=== PATIENT | female | born 1940 | race African-American/Black ===

== ENCOUNTER → 2016-09-01 | Outpatient (CLI) | payer OTHER, MEDICAID ==
[2016-07-16 17:49] VITALS: BP 192/91
[~2016-09-01] MED LIST: AMLO5TAB2 PO; APIX5TAB PO; DIPH25CA58 PO; HYDR-2678 PO; IOHEXOL 240 MG/ML 50ML VIAL. PO ONE; IOHEXOL 300 MG/ML 75 ML VIAL IV ONE; LOSA1TAB16 PO; LOSA1TAB18 PO; OMEP20TA PO; PRED20TA PO
--- NOTE | 2016-09-01 08:51 | RAD ---
INDICATION: Follow-up of known thrombus COMPARISON: 06/16/2016 TECHNIQUE: Grayscale, color and doppler ultrasound images were obtained of the left lower extremity venous vasculature. LEFT: Nonocclusive thrombus is seen within the left common femoral and popliteal veins. Superficial femoral vein is now patent. IMPRESSION: 1. Nonocclusive thrombus is identified in left common femoral and distal popliteal vein.
--- NOTE | 2016-09-01 12:57 | RAD ---
INDICATION: Restage rectal cancer COMPARISON: 09/28/2015 and 09/10/2015 TECHNIQUE: Axial CT images were obtained through the chest, abdomen and pelvis with intravenous contrast. Coronal reformations were processed. FINDINGS: Chest: No evidence of pneumothorax. Linear nodular density near right lung base measuring up to approximately 2.4 cm. No definite growth of the previously identified tiny nodules within the lungs seen on prior exam. Mild to moderate calcific atherosclerosis without thoracic aortic aneurysm. Degenerative changes of spine. Abdomen: Liver is low attenuation. Mild calcific atherosclerosis without abdominal aortic aneurysm. No peripancreatic edema. Possible subcentimeter low-attenuation lesion within the liver. Spleen unremarkable. Subcentimeter low-attenuation left renal lesion, too small to characterize. Probable cyst right kidney measuring approximately 5 cm. No major change in left adrenal nodule. Nodular density right adrenal gland is again seen, could be an adenoma. Bladder is partially distended. Postoperative changes to the sigmoid region. Appendix does not appear grossly inflamed. No dilated loops of bowel suggest obstruction. There is a small amount of presacral edema. Small fat-containing umbilical hernia. Degenerative changes spine. Small ventral abdominal wall hernia within upper abdomen. IMPRESSION: 1. Interval postoperative changes to the sigmoid region with staple line seen. 2. There is some presacral edema identified. Could be related to the patient's surgery or posttreatment changes. 3. There is a possible subcentimeter low-attenuation lesion within the liver. This can be monitored on future examinations to ensure no growth. 4. Linear nodular density seen at right lung base. Could be secondary to round atelectasis but given the patient's history would consider obtaining a follow-up examination in a few months to ensure no growth to exclude neoplastic causes. 5. Right greater than left adrenal nodule again seen. Could be from adenomas but can be followed on future exams. PQRS Compliance Statement: One or more of the following individualized dose reduction techniques were utilized for this examination: 1. Automated exposure control 2. Adjustment of the mA and/or kV according to patient size 3. Use of iterative reconstruction technique
== END | disposition home or self-care (01) ==
LOC: CT 07:53
PROVIDERS: ATTEND Internal Medicine Hematology & Oncology
DX: C20 Malignant neoplasm of rectum (principal); Z86.718 Personal history of other venous thrombosis and embolism
CPT/HCPCS: 71260; 74177; 93971; Q9966; Q9967

== ENCOUNTER 2016-11-25 05:20 | Emergency (ER) | payer OTHER, MEDICAID ==
[~2016-11-25] VITALS: Ht 157.5 cm; Wt 74.8 kg
[~2016-11-25 05:20] MED LIST changes: -CONTRAST GIVEN MC PRN; -IOHEXOL 240 MG/ML 50ML VIAL. PO ONE; -IOHEXOL 300 MG/ML 75 ML VIAL IV ONE; -PRED50TA PO
[2016-11-25 05:31] VITALS: BP 151/102
--- NOTE | 2016-11-25 05:49 | PHYS DOC ---
Past Medical History Past Medical History: Cancer, Hypertension, Other Additional Past Medical Histor: RECTAL CANCER, CHEMO Past Surgical History: Other Additional Past Surgical Histo: illeostomy, hernia, COLOSTOMY REVERSAL Alcohol Use: None Drug Use: None Adult General Chief Complaint Chief Complaint: FACE PROBLEM HPI HPI Patient is a 76 year old female who has a history significant for colorectal cancer and hypertension who presents to the ER today complaining of swelling to her right lower lip and right cheeks and started approximately 9:30 PM. Patient reports that she has a history of hypertension and that she used to be on amlodipine and lisinopril approximately 1-2 years ago an episode of angioedema that was similar to what she is having now and she was told to stop her lisinopril. Patient reports she has been taking her amlodipine for several years now without any problems. Patient denies any new medications To her new allergens that are identified here in the ED. Patient reports that she was on a liquids for a blood clot in her left lower extremities however she is no longer on that. Patient denies any recent fevers shakes chills nausea vomiting diarrhea chest pain or shortness of breath. Patient denies any difficulty swallowing or difficulty breathing. Patient denies any wheezing. Patient denies any other rash on her body. Her abdominal discomfort or diarrhea. Patient's physical exam is significant for angioedema that is most notable to her right lower lip and right cheeks. His oropharynx is clear. Patient's uvula was midline without any evidence of angioedema. Patient's tongue did not exhibit any significant angioedema. Patient's airway appears to be stable. There is no evidence of airway compromise at this time. There is no stridor. Patient's lung exam was clear. There is no wheezing rales or rhonchi. Patient's skin exam was unremarkable. There was no evidence of other rashes. A/P #1 angioedema etiology unclear however most likely culprit is her calcium channel logan, amlodipine. Patient does have an appointment to see her primary care physician, Dr. Salcedo coming up. We will need to stop her amlodipine. She will need to see her primary care doctor determine her next course of action regarding initiating a new antihypertensive medication. While in the ER we'll observe her. We will give her Benadryl and prednisone which she reports she got in the past and is have helped her last time she had angioedema. Patient will need to be discharged on Benadryl and prednisone and was discussed earlier she'll be instructed to stop her amlodipine as this is the only further culprit that could be causing her angioedema at this time. Review of Systems Review of Systems Constitutional: Denies fever or chills [] Eyes: Denies change in visual acuity, redness, or eye pain [] HENT: Denies nasal congestion or sore throat [] Respiratory: Denies cough or shortness of breath [] Cardiovascular: No additional information not addressed in HPI [] GI: Denies abdominal pain, nausea, : Denies dysuria or hematuria [] Musculoskeletal: Denies back pain or joint pain [] Integument: See above. Neurologic: Denies headache, focal weakness or sensory changes [] Current Medications Current Medications Current Medications Medications (Trade) Dose Ordered Sig/Abdiaziz Start Time Stop Time Status Last Admin Dose Admin Diphenhydramine HCl (Benadryl) 25 mg 1X ONCE 11/25/16 06:00 11/25/16 06:01 DC 11/25/16 06:05 25 MG Methylprednisolone Sodium Succinate (Solu-Medrol 125mg Vial) 125 mg 1X ONCE 11/25/16 06:00 11/25/16 06:01 DC 11/25/16 06:05 125 MG Allergies Allergies Allergies Coded Allergies Type Severity Reaction Last Updated Verified losartan Allergy Severe Hives 04/07/16 Yes Penicillins Allergy Intermediate 04/07/16 Yes lisinopril Allergy Unknown 11/25/16 Yes Physical Exam Physical Exam Constitutional: Well developed, well nourished, no acute distress, non-toxic appearance. [] HENT: Normocephalic, atraumatic, bilateral external ears normal, oropharynx moist, no oral exudates, nose normal. Please see above for evaluation of her angioedema. [] Eyes: PERRLA, EOMI, conjunctiva normal, Neck: Normal range of motion, no tenderness, supple, no stridor. [] Cardiovascular:Heart rate regular rhythm, Lungs & Thorax: Bilateral breath sounds clear to auscultation [] Abdomen: Bowel sounds normal, soft, no tenderness, no masses, no pulsatile masses. [] Skin: Warm, dry, no erythema, no rash. [] Back: No tenderness, no CVA tenderness. [] Extremities: No tenderness, no cyanosis, no clubbing, ROM intact, no edema. [] Neurologic: Alert and oriented X 3, normal motor function, normal sensory function, no focal deficits noted. [] Psychologic: Affect normal, judgement normal, mood normal. [] Current Patient Data Vital Signs Vital Signs Date Time Temp Pulse Resp B/P (MAP) Pulse Ox O2 Delivery O2 Flow Rate FiO2 11/25/16 05:31 97.4 79 16 99 Room Air 97.4 EKG EKG [] Radiology/Procedures Radiology/Procedures [] Course & Med Decision Making Course & Med Decision Making Pertinent Labs and Imaging studies reviewed. (See chart for details) [On arrival at 6 AM evaluated patient noted to have angioedema of the lower lip. She noted last at about 9 PM after using a lisinopril localized swelling just to the lower lip without change in voice neck stiffness or pain. Patient is an idiopathic reaction like this in the past has been one not take lisinopril. She took some Benadryl but she still having some localized swelling to the lip as well. Over the course of her evaluation here in the emergent over the last hour and a half her lip has significantly gone down inside given the methylprednisolone IV and Benadryl. Patient understands need not take lisinopril will follow-up with her primary care doctor. Impression angioedema Disposition and treatment: Patient we discharged her primary care doctor given a course of Benadryl and prednisone orally for the next 5 days with precautions given] Jeovany Disclaimer Dragon Disclaimer This electronic medical record was generated, in whole or in part, using a voice recognition dictation system. Departure Departure Impression: Primary Impression: Angioedema Disposition: 01 HOME, SELF-CARE Condition: IMPROVED Referrals: MAYNOR SALCEDO (PCP) Patient Instructions: Angioedema Scripts Prednisone (PREDNISONE) 50 Mg Tablet 50 MG PO DAILY for 5 Days, #5 TAB Prov: HEATH HARRISON MD 11/25/16 Diphenhydramine Hcl (BENADRYL) 25 Mg Capsule 50 MG PO QID for 5 Days, #40 CAP Prov: HEATH HARRISON MD 11/25/16 Problem Qualifiers Primary Impression: Angioedema Encounter type: initial encounter Qualified Codes: T78.3XXA - Angioneurotic edema, initial encounter TANG MAI MD November 25, 2016 05:49 HEATH HARRISON MD November 25, 2016 06:45
[2016-11-25] MEDS ORDERED: methylPREDNISolone SOD SUCC PF 125 MG/2 ML VIAL. IV ONE (06:00)
[2016-11-25] MEDS ORDERED: diphenhydrAMINE 50 MG/ML VIAL IVP ONE (06:00)
[2016-11-25] MEDS ORDERED: PRED50TA PO (06:45)
[2016-11-25] MEDS ORDERED: DIPH25CA58 PO (06:45)
== END 2016-11-25 06:50 | disposition home or self-care (01) ==
LOC: ER 05:20
DX: T78.3XXA Angioneurotic edema, initial encounter (principal); I10 Essential (primary) hypertension; Z88.0 Allergy status to penicillin; T88.7XXA Unspecified adverse effect of drug or medicament, initial encounter; T46.4X5A Adverse effect of angiotensin-converting-enzyme inhibitors, initial encounter
CPT/HCPCS: 96374; 96375; 99284; J1200; J2930

== ENCOUNTER → 2016-11-25 | Outpatient (CLI) | payer OTHER, MEDICAID ==
[~2016-11-25] MED LIST changes: +CONTRAST GIVEN MC PRN; +PRED50TA PO
[2016-11-25 05:31] VITALS: BP 151/102
--- NOTE | 2016-11-25 10:25 | RAD ---
Indication: Rectal carcinoma, restaging. Axial imaging through the chest, abdomen and pelvis was performed after the administration of intravenous contrast. Correlation is made with prior CT from 09/01/2016. CT chest: No axillary, hilar or mediastinal lymphadenopathy is detected. No pericardial or pleural fluid is identified. Previously noted nodular ill-defined peripheral density in the posterior right lower lobe is stable and consistent with probable scarring or atelectasis. The remainder of the lung perez are clear. Impression: Stable CT of the chest when compared with exam from 09/01/2016. No thoracic lymphadenopathy or evidence of pulmonary metastatic disease is identified. CT abdomen and pelvis: A tiny low density in the right lobe the liver near the dome appears stable and barely visible. No new liver mass is detected. The gallbladder is unremarkable. The pancreas and spleen are unremarkable. Previously noted bilateral adrenal nodularity is stable. The 5 cm cyst upper pole right kidney appears stable. The aorta is nonaneurysmal. No central retroperitoneal or mesenteric lymphadenopathy is detected. The small and large bowel loops are normal caliber. Postsurgical changes near the rectosigmoid junction are noted. Mild edema in the presacral space is again noted and again likely posttherapeutic. No pelvic lymphadenopathy is seen. Impression: Stable CT of the abdomen and pelvis when compared with exam from 09/01/2016. No abdominal or pelvic lymphadenopathy or evidence of metastatic disease is identified. PQRS Compliance Statement: One or more of the following individualized dose reduction techniques were utilized for this examination: 1. Automated exposure control 2. Adjustment of the mA and/or kV according to patient size 3. Use of iterative reconstruction technique
== END | disposition home or self-care (01) ==
LOC: CT 07:50
PROVIDERS: ATTEND Internal Medicine Hematology & Oncology
DX: C20 Malignant neoplasm of rectum (principal)
CPT/HCPCS: 71260; 74177; Q9966; Q9967

== ENCOUNTER 2016-12-13 00:22 | Emergency (ER) | payer OTHER, MEDICAID ==
[~2016-12-13] VITALS: Ht 157.5 cm; Wt 74.8 kg
[~2016-12-13 00:22] MED LIST changes: +PRED50TA PO
--- NOTE | 2016-12-13 00:32 | PHYS DOC ---
Past Medical History Past Medical History: Cancer, Hypertension, Other Additional Past Medical Histor: RECTAL CANCER, CHEMO Past Surgical History: Other Additional Past Surgical Histo: illeostomy, hernia, COLOSTOMY REVERSAL Alcohol Use: None Drug Use: None Adult General Chief Complaint Chief Complaint: ALLERGIC REACTION [facility] HPI Patient is a 76 year old female who presents with upper lip swelling around the left side onset couple hours prior to arrival slight itching denies rash denies tongue swelling denies shortness of breath or difficulty swallowing secretions. Prior ER visit for same problem 2 weeks ago--treated with steroids and Benadryl. She was recently changed to amlodipine and is discontinued ROC inhibitor's and ARB's due to concerns for angioedema in the past. Review of Systems Review of Systems Constitutional: Denies fever or chills [] Eyes: Denies change in visual acuity, redness, or eye pain [] HENT: Denies nasal congestion or sore throat [] Respiratory: Denies cough or shortness of breath [] Cardiovascular: No additional information not addressed in HPI [] GI: Denies abdominal pain, nausea, vomiting, bloody stools or diarrhea [] : Denies dysuria or hematuria [] Musculoskeletal: Denies back pain or joint pain [] Integument: Denies rash or skin lesions [] Neurologic: Denies headache, focal weakness or sensory changes [] Endocrine: Denies polyuria or polydipsia [] Current Medications Current Medications Current Medications Medications (Trade) Dose Ordered Sig/Abdiaziz Start Time Stop Time Status Last Admin Dose Admin Diphenhydramine HCl (Benadryl) 25 mg 1X ONCE 12/13/16 01:00 12/13/16 01:01 DC 12/13/16 00:50 25 MG Methylprednisolone Sodium Succinate (SOLU-Medrol 125MG VIAL) 125 mg 1X ONCE 12/13/16 01:00 12/13/16 01:01 DC 12/13/16 00:50 125 MG Sodium Chloride 500 ml @ 500 mls/hr 1X ONCE 12/13/16 01:00 12/13/16 01:59 DC 12/13/16 00:49 500 MLS/HR Allergies Allergies Allergies Coded Allergies Type Severity Reaction Last Updated Verified losartan Allergy Severe Hives 04/07/16 Yes Penicillins Allergy Intermediate 04/07/16 Yes lisinopril Allergy Unknown 11/25/16 Yes Physical Exam Physical Exam Constitutional: Well developed, well nourished, no acute distress, non-toxic appearance. [] HENT: Normocephalic, atraumatic, bilateral external ears normal, oropharynx moist, no oral exudates, nose normal. Mild swelling to the left upper lip [] Eyes: PERRLA, EOMI, conjunctiva normal, no discharge. [] Neck: Normal range of motion, no tenderness, supple, no stridor. [] Cardiovascular:Heart rate regular rhythm, no murmur [] Lungs & Thorax: Bilateral breath sounds clear to auscultation [] Abdomen: Bowel sounds normal, soft, no tenderness, no masses, no pulsatile masses. [] Skin: Warm, dry, no erythema, no rash. [] Back: No tenderness, no CVA tenderness. [] Extremities: No tenderness, no cyanosis, no clubbing, ROM intact, no edema. [] Neurologic: Alert and oriented X 3, normal motor function, normal sensory function, no focal deficits noted. [] Psychologic: Affect normal, judgement normal, mood normal. [] Current Patient Data Vital Signs Vital Signs Date Time Temp Pulse Resp B/P (MAP) Pulse Ox O2 Delivery O2 Flow Rate FiO2 12/13/16 01:30 65 153/85 (107) 97 Room Air 12/13/16 00:25 97.3 20 97.3 EKG EKG [] Radiology/Procedures Radiology/Procedures [] Course & Med Decision Making Course & Med Decision Making Pertinent Labs and Imaging studies reviewed. (See chart for details) The patient is stable and in no distress will give her some IV steroids and Benadryl and IV fluids and observe for progression or improvement of symptoms. Time 0 1:30 AM patient is improved and wants to go home [] Dragon Disclaimer Dragon Disclaimer This electronic medical record was generated, in whole or in part, using a voice recognition dictation system. Departure Departure Impression: Primary Impression: Angioedema Disposition: HOME, SELF-CARE Condition: IMPROVED Referrals: MAYNOR SALCEDO (PCP) AMEYA MORLEY MD December 13, 2016 00:32
[2016-12-13] MEDS ORDERED: diphenhydrAMINE 50 MG/ML VIAL IVP ONE (01:00)
[2016-12-13] MEDS ORDERED: IV NORMAL SALINE 500ML BAG 500 ML IV ONE (01:00)
[2016-12-13] MEDS ORDERED: methylPREDNISolone SOD SUCC PF 125 MG/2 ML VIAL. IV ONE (01:00)
[2016-12-13 01:30] VITALS: BP 153/85
== END 2016-12-13 01:55 | disposition home or self-care (01) ==
LOC: ER 00:22
DX: T78.3XXA Angioneurotic edema, initial encounter (principal); I10 Essential (primary) hypertension; Z88.0 Allergy status to penicillin; Z88.8 Allergy status to other drugs, medicaments and biological substances
CPT/HCPCS: 96361; 96374; 96375; 99284; J1200; J2930; J7040

== ENCOUNTER → 2017-03-19 | Outpatient (CLI) | payer MEDICAID, OTHER ==
[~2017-03-19] MED LIST changes: -OMEP20TA PO; +OMEP20TA8 PO
--- NOTE | 2017-03-19 15:10 | RAD ---
Exam performed: Left lower extremity venous Doppler. Clinical Indication: Left leg pain, history of DVT Date of Service:03/19/17 Comparison : Left lower extremity venous Doppler from 09/01/16 and bilateral lower extremity venous Doppler from 06/16/16 Discussion: Multiple longitudinal and transverse high resolution real-time images of the venous system of left lower extremity were obtained with color and Doppler sampling and spectral analysis. The common femoral, superficial femoral, popliteal and proximal calf veins are all patent and demonstrate normal flow and compressibility. Normal respiratory phasicity and augmentation is present. Impression: Normal color duplex ultrasound of the venous system of left lower extremity.
== END | disposition home or self-care (01) ==
LOC: US 13:58
PROVIDERS: ATTEND Internal Medicine Hematology & Oncology
DX: M79.605 Pain in left leg (principal); Z85.048 Personal history of other malignant neoplasm of rectum, rectosigmoid junction, and anus; Z86.718 Personal history of other venous thrombosis and embolism
CPT/HCPCS: 93971

== ENCOUNTER → 2017-11-25 | Outpatient (CLI) | payer OTHER ==
[~2017-11-25] MED LIST changes: -AMLO5TAB2 PO; -APIX5TAB PO; +CONTRAST GIVEN MC; -DIPH25CA58 PO; -HYDR-2678 PO; -LOSA1TAB16 PO; -LOSA1TAB18 PO; -OMEP20TA8 PO; -PRED20TA PO; -PRED50TA PO
[2017-11-25] MEDS: IOHEXOL 240 MG/ML 50ML VIAL. PO (08:15)
[2017-11-25] MEDS: IOHEXOL 300 MG/ML 100ML VIAL. IV (09:05)
== END | disposition home or self-care (01) ==
LOC: CT 07:31
DX: C20 Malignant neoplasm of rectum (principal)
CPT/HCPCS: 71260; 74177; Q9966; Q9967

== ENCOUNTER → 2017-12-09 | Outpatient (CLI) | payer OTHER | END | disposition home or self-care (01) | LOC: MAMMO 09:27 | DX: N63.21 Unspecified lump in the left breast, upper outer quadrant (principal); I10 Essential (primary) hypertension; E78.5 Hyperlipidemia, unspecified; Z85.048 Personal history of other malignant neoplasm of rectum, rectosigmoid junction, and anus | CPT/HCPCS: 76641; 77066; G0279 ==

== ENCOUNTER → 2017-12-15 | Outpatient (CLI) | payer OTHER ==
[~2017-12-15] MED LIST changes: -CONTRAST GIVEN MC; +LIDOCAINE 1% Multi-Dose 50 ML VIAL. INJ
== END | disposition home or self-care (01) ==
LOC: US 09:58
DX: C50.912 Malignant neoplasm of unspecified site of left female breast (principal); D24.1 Benign neoplasm of right breast; Z88.0 Allergy status to penicillin; Z88.8 Allergy status to other drugs, medicaments and biological substances; Z98.42 Cataract extraction status, left eye; Z98.41 Cataract extraction status, right eye; Z96.1 Presence of intraocular lens; I10 Essential (primary) hypertension; Z85.038 Personal history of other malignant neoplasm of large intestine; E66.9 Obesity, unspecified; Z90.710 Acquired absence of both cervix and uterus; Z90.721 Acquired absence of ovaries, unilateral; Z90.79 Acquired absence of other genital organ(s); F41.9 Anxiety disorder, unspecified
CPT/HCPCS: 19081; 19083; 76942; 77066; 88305; 88361; C1713

== ENCOUNTER 2018-01-04 07:25 | Observation (INO) | payer OTHER ==
[~2018-01-04 07:25] MED LIST changes: +IV RINGERS,LACTATED 1000ML 1,000 ML IV; -LIDOCAINE 1% Multi-Dose 50 ML VIAL. INJ; +LIDOCAINE 1% PF 2 ML VIAL. ID; +ONDANSETRON PF 4 MG/2 ML VIAL. IV; +PROCHLORPERAZINE 10 MG/2 ML VIAL. IV; +fentaNYL PF VIAL 100 MCG/2 ML VIAL IV
[2018-01-04] MEDS: LIDOCAINE WITH 8.4% SOD BICARB 3 ML DISP.SYRIN. INJ ×2 (07:30)
[2018-01-04] MEDS ORDERED: ISOSULFAN BLUE 50 MG/5 ML VIAL. SQ (08:10)
[2018-01-04] MEDS ORDERED: METHYLENE BLUE 1% 10 ML VIAL. (08:10)
[2018-01-04] MEDS ORDERED: DEXAMETHASONE SOD PHOS 20 MG/5 ML VIAL. (08:41)
[2018-01-04] MEDS ORDERED: LIDOCAINE 2% PF Vial for OR 5 ML VIAL. (08:41)
[2018-01-04] MEDS ORDERED: fentaNYL PF VIAL 100 MCG/2 ML VIAL ×3 (08:41→13:16)
[2018-01-04] MEDS ORDERED: ONDANSETRON PF 4 MG/2 ML VIAL. (08:41)
[2018-01-04] MEDS ORDERED: PROPOFOL 20 ML IV (08:41)
[2018-01-04] MEDS: ISOSULFAN BLUE 50 MG/5 ML VIAL. SQ (09:49)
[2018-01-04] MEDS ORDERED: ePHEDrine PF IN SALINE 50 MG/5 ML DISP.SYRIN IV (11:02)
[2018-01-04] MEDS ORDERED: SEVOFLURANE > 120 MINUTES. IH (11:03)
[2018-01-04] MEDS: IV 1/2 NORMAL SALINE 1,000 ML IV ×3 (12:05→20:28)
[2018-01-04] MEDS ORDERED: fentaNYL PF VIAL 100 MCG/2 ML VIAL IV (12:15)
[2018-01-04] MEDS ORDERED: 0.9 % SODIUM CHLORIDE 10 ML DISP.SYRIN. IV (12:15)
[2018-01-04] MEDS ORDERED: ONDANSETRON PF 4 MG/2 ML VIAL. IV (12:15)
[2018-01-04] MEDS ORDERED: HYDROcodone/APAP 5/325MG 1 TAB TABLET PO (12:15)
[2018-01-04] MEDS: fentaNYL PF VIAL 100 MCG/2 ML VIAL IV ×4 (12:21→13:31)
[2018-01-04] MEDS ORDERED: MORPHINE SULFATE 2 MG/ML DISP.SYRIN. (12:50)
[2018-01-04] MEDS: MORPHINE SULFATE 2 MG/ML DISP.SYRIN. IV ×2 (12:57→13:07)
[2018-01-04] MEDS: HYDROcodone/APAP 5/325MG 1 TAB TABLET PO (17:26)
[2018-01-05] MEDS: HYDROcodone/APAP 5/325MG 1 TAB TABLET PO (03:27)
== END 2018-01-05 13:15 | disposition other institution (70) ==
LOC: SURG 07:25 → 4 NORTH 12:05
DX: C50.912 Malignant neoplasm of unspecified site of left female breast (principal); Z85.3 Personal history of malignant neoplasm of breast; Z90.12 Acquired absence of left breast and nipple
CPT/HCPCS: 19303; 38792; 96374; A7015; A9541; G0378; G0379; J1100; J1956; J2001; J2270; J2405; J2704; J3010; J7120; Q9968

== ENCOUNTER → 2018-01-27 | Outpatient (CLI) | payer OTHER ==
[~2018-01-27] MED LIST changes: -IV RINGERS,LACTATED 1000ML 1,000 ML IV; -LIDOCAINE 1% PF 2 ML VIAL. ID; +LIDOCAINE 1% PF 30 ML VIAL.; -ONDANSETRON PF 4 MG/2 ML VIAL. IV; -PROCHLORPERAZINE 10 MG/2 ML VIAL. IV; -fentaNYL PF VIAL 100 MCG/2 ML VIAL IV
== END | disposition home or self-care (01) ==
LOC: ECHO 07:17
DX: I35.1 Nonrheumatic aortic (valve) insufficiency (principal); C20 Malignant neoplasm of rectum; C50.212 Malignant neoplasm of upper-inner quadrant of left female breast; I10 Essential (primary) hypertension; E78.5 Hyperlipidemia, unspecified; Z17.0 Estrogen receptor positive status [ER+]
CPT/HCPCS: 93306

== ENCOUNTER → 2018-01-27 | Day surgery (SDC) | payer OTHER ==
[~2018-01-27] MED LIST changes: +DEXAMETHASONE SOD PHOS 20 MG/5 ML VIAL.; +LIDOCAINE 1% PF 2 ML VIAL. ID; -LIDOCAINE 1% PF 30 ML VIAL.; +LIDOCAINE 2% PF Vial for OR 5 ML VIAL.; +MIDAZOLAM HCL/PF 2 MG/2 ML VIAL.; +MORPHINE SULFATE 2 MG/ML DISP.SYRIN. IV; +ONDANSETRON PF 4 MG/2 ML VIAL.; +ONDANSETRON PF 4 MG/2 ML VIAL. IV; +PROCHLORPERAZINE 10 MG/2 ML VIAL. IV; +PROPOFOL 20 ML IV; +SEVOFLURANE 61 TO 120 MINUTES. IH; +fentaNYL PF VIAL 100 MCG/2 ML VIAL; +fentaNYL PF VIAL 100 MCG/2 ML VIAL IV
[2018-01-27] MEDS: IV RINGERS,LACTATED 1000ML 1,000 ML IV (08:09)
[2018-01-27] MEDS: LIDOCAINE 1% PF 30 ML VIAL. INJ (09:24)
[2018-01-27] MEDS: HEPARIN SODIUM 5,000 UNIT in IV NORMAL SALINE 500ML BAG 500 ML IRR (09:24)
[2018-01-27] MEDS: fentaNYL PF VIAL 100 MCG/2 ML VIAL IV (10:28)
[2018-01-27] MEDS: HYDROcodone/APAP 5/325MG 1 TAB TABLET PO (10:44)
== END | disposition home or self-care (01) ==
LOC: SURG 07:09
DX: C50.912 Malignant neoplasm of unspecified site of left female breast (principal); I10 Essential (primary) hypertension; E78.5 Hyperlipidemia, unspecified; E66.9 Obesity, unspecified; K21.9 Gastro-esophageal reflux disease without esophagitis; Z79.899 Other long term (current) drug therapy; M85.80 Other specified disorders of bone density and structure, unspecified site; Z85.048 Personal history of other malignant neoplasm of rectum, rectosigmoid junction, and anus; Z90.710 Acquired absence of both cervix and uterus; Z98.890 Other specified postprocedural states; Z90.12 Acquired absence of left breast and nipple; Z90.79 Acquired absence of other genital organ(s); Z90.722 Acquired absence of ovaries, bilateral; Z43.2 Encounter for attention to ileostomy; Z88.0 Allergy status to penicillin; Z88.8 Allergy status to other drugs, medicaments and biological substances; Z98.42 Cataract extraction status, left eye; Z98.41 Cataract extraction status, right eye; Z96.1 Presence of intraocular lens; G62.9 Polyneuropathy, unspecified; Z86.718 Personal history of other venous thrombosis and embolism; Z68.33 Body mass index [BMI] 33.0-33.9, adult; F41.9 Anxiety disorder, unspecified
CPT/HCPCS: 36556; 36561; 71045; 77001; A7015; C1788; J1100; J1644; J1956; J2001; J2250; J2405; J2704; J3010; J7040

== ENCOUNTER → 2018-03-04 | Outpatient (CLI) | payer OTHER ==
[2018-01-05 11:00] VITALS: BP 130/59
[~2018-03-04] MED LIST changes: +ACET500T68 PO; +AMLO5TAB2 PO; +APIX5TAB PO; -DEXAMETHASONE SOD PHOS 20 MG/5 ML VIAL.; +DIPH25CA58 PO; +HYDR-2678 PO; +HYDR-2758 PO; +HYDR-971 PO; -LIDOCAINE 1% PF 2 ML VIAL. ID; -LIDOCAINE 2% PF Vial for OR 5 ML VIAL.; +LOSA1TAB19 PO; +LOSA1TAB25 PO; -MIDAZOLAM HCL/PF 2 MG/2 ML VIAL.; -MORPHINE SULFATE 2 MG/ML DISP.SYRIN. IV; +OMEP20TA8 PO; -ONDANSETRON PF 4 MG/2 ML VIAL.; -ONDANSETRON PF 4 MG/2 ML VIAL. IV; +PRED20TA PO; +PRED50TA PO; -PROCHLORPERAZINE 10 MG/2 ML VIAL. IV; -PROPOFOL 20 ML IV; -SEVOFLURANE 61 TO 120 MINUTES. IH; -fentaNYL PF VIAL 100 MCG/2 ML VIAL; -fentaNYL PF VIAL 100 MCG/2 ML VIAL IV
--- NOTE | 2018-03-04 15:32 | RAD ---
Left upper extremity venous duplex study 03/04/2018 Clinical History: Left upper extremity edema Technique: Using a combination of real time ultrasound imaging and color-flow and pulse Doppler imaging techniques, including spectral analysis, graded compression and augmentation, duplex evaluation of the deep venous system of the left upper extremity was performed. Multiple images were obtained. Findings: There is no sonographic evidence of deep venous thrombosis involving the visualized deep venous structures of the left upper extremity Impression: No evidence of deep venous thrombosis involving the left upper extremity Electronically signed by: Cali Johnson MD (03/04/2018 3:28 PM) [id number]
== END | disposition home or self-care (01) ==
LOC: US 16:06
PROVIDERS: ATTEND Nurse Practitioner Adult Health
DX: R60.0 Localized edema (principal); I10 Essential (primary) hypertension; E78.5 Hyperlipidemia, unspecified; K21.9 Gastro-esophageal reflux disease without esophagitis; Z90.49 Acquired absence of other specified parts of digestive tract; Z90.722 Acquired absence of ovaries, bilateral
CPT/HCPCS: 93971

== ENCOUNTER → 2018-05-07 | Outpatient (CLI) | payer OTHER ==
[2018-01-05 11:00] VITALS: BP 130/59
[~2018-05-07] MED LIST changes: -AMLO5TAB2 PO; +AMLO5TAB7 PO
--- NOTE | 2018-05-07 11:24 | KCIC ---
Bone mineral density study dated 05/07/2018. Indication: Postmenopausal screening. Findings: Lower lumbar spine: BMD (g/cm2): Total L1-L4.......... 0.989. . T-Score: Total L1-L4.................... -0.5. Z-Score: Total L1-L4 ................... 1.9. Left Hip: BMD (g/cm2): Total .......... 0.628. . T-Score: Total .................... -2.6 Z-Score: Total ................... -0.7. World Health Organization criteria for BMD interpretation classify patients as Normal (T-score at or above -1.0), Osteopenic (T-score between -1.0 and -2.5), or Osteoporotic (T-score at or below -2.5). Impression: 1. Bone mineral density values of the left hip correlate with osteoporosis. 2. Density values of the lumbar spine are within the range of normal but could be falsely elevated due to advanced degenerative change Electronically signed by: Gino Reynoso MD (05/07/2018 11:20 AM) [id number]
== END | disposition home or self-care (01) ==
LOC: KCIC DEXA 10:04
PROVIDERS: ATTEND Internal Medicine Hematology & Oncology
DX: Z13.820 Encounter for screening for osteoporosis (principal); Z78.0 Asymptomatic menopausal state
CPT/HCPCS: 77080

== ENCOUNTER → 2018-12-29 | Outpatient (CLI) | payer OTHER ==
[2018-01-05 11:00] VITALS: BP 130/59
[~2018-12-29] MED LIST changes: +AMLO5TAB10 PO; -AMLO5TAB7 PO; -HYDR-2758 PO; +HYDR-2761 PO; +HYDR-3164 PO; -HYDR-971 PO
--- NOTE | 2018-12-29 09:31 | RAD ---
DATE: 12/29/2018 EXAM: MAMMO SARKIS DIAG RT HISTORY: Previous left breast cancer COMPARISON: 12/09/2017, 12/15/2017 This study was interpreted with the benefit of Computerized Aided Detection (CAD). Breast Density: SCATTERED The breast parenchyma shows scattered fibroglandular densities. Breast parenchyma level B. FINDINGS: 2-D and 3-D tomosynthesis imaging was performed in CC and MLO projections. A breast biopsy marker is again noted related to a lobulated nodule in the lateral aspect of the right breast. This nodule has not increased in size. Note is made that the previous biopsy results of this nodule demonstrated atypical findings with lobular carcinoma in situ. There are additional scattered fibroglandular densities which are stable. No new or enlarging breast densities are seen. Minimal benign type calcification is present. No suspicious microcalcifications have developed. IMPRESSION: Stable right mammograms BI-RADS [id number] lobular carcinoma in situ. RECOMMENDED FOLLOW-UP: 12M 12 MONTH FOLLOW-UP PQRS compliance statement: Patient information was entered into a reminder system with a target due date for the next mammogram. Mammography is a sensitive method for finding small breast cancers, but it does not detect them all and is not a substitute for careful clinical examination. A negative mammogram does not negate a clinically suspicious finding and should not result in delay in biopsying a clinically suspicious abnormality. "Our facility is accredited by the [employer] Mammography Program."
== END | disposition home or self-care (01) ==
LOC: MAMMO 08:43
PROVIDERS: ATTEND Internal Medicine Hematology & Oncology
DX: N63.10 Unspecified lump in the right breast, unspecified quadrant (principal); R92.1 Mammographic calcification found on diagnostic imaging of breast; Z17.0 Estrogen receptor positive status [ER+]; Z88.0 Allergy status to penicillin; Z88.8 Allergy status to other drugs, medicaments and biological substances; Z85.048 Personal history of other malignant neoplasm of rectum, rectosigmoid junction, and anus; Z85.3 Personal history of malignant neoplasm of breast
CPT/HCPCS: 77065; G0279; 77061

== ENCOUNTER → 2019-02-22 | Outpatient (CLI) | payer OTHER ==
[2018-01-05 11:00] VITALS: BP 130/59
[~2019-02-22] MED LIST changes: +CONTRAST GIVEN. MC PRN; +IOHEXOL 240 MG/ML 50ML VIAL. PO ONE; +IOHEXOL 300 MG/ML 100ML VIAL. IV ONE
--- NOTE | 2019-02-22 16:43 | RAD ---
PQRS Compliance Statement: One or more of the following individualized dose reduction techniques were utilized for this examination: 1. Automated exposure control 2. Adjustment of the mA and/or kV according to patient size 3. Use of iterative reconstruction technique CT chest, abdomen and pelvis with contrast February 22, 2019 INDICATION: Rectal cancer; restaging. COMPARISON: The chest, abdomen and pelvis November 25, 2017 TECHNIQUE: Multiple axial CT images of the chest, abdomen and pelvis were obtained after the intravenous administration of nonionic contrast. Coronal and sagittal reformats are provided. FINDINGS: CHEST: Increase in groundglass nodule in the left upper lobe previously measuring 8 mm and currently measuring 10 mm (series 2, image 16). Stable 4 mm groundglass nodule in the left upper lobe (series 2, image 8). Bandlike density at the right lung base may represent subsegmental atelectasis versus infiltrate. There are no pleural effusions, pulmonary vascular congestion or pneumothorax. Heart size is within normal limits. No pericardial effusion. Thoracic aorta is normal in course and caliber with mild calcified plaque. Thoracic esophagus is normal in appearance. No pathologically enlarged thoracic lymph nodes are identified. Left mastectomy changes are identified. Abdomen/pelvis: Stable 5 mm hypodensity in segment VIII (series 2, image 42). This finding is too small to characterize and remains indeterminate. Spleen is normal in appearance. Left adrenal nodule measures 7 x 9 mm. Right adrenal nodule measures 16 x 13 mm, stable. Pancreas and gallbladder are normal in appearance. Aorta is normal. No pathologically enlarged lymph nodes in abdomen and pelvis. No free fluid or free intraperitoneal air. Supraumbilical ventral midline hernia containing fat measures 14 mm. Anastomotic changes are identified at the rectosigmoid junction. No suspicious nodularity is identified in this region. Oral contrast was administered. Opacified bowel loops demonstrate normal mucosal fold pattern. Appendix is normal. No evidence for bowel obstruction or inflammation. Mild stranding in the presacral fat may reflect posttreatment related changes. Increase in superior pole right renal cyst measuring 6.1 cm, previously 5.7 cm. The kidneys enhance symmetrically. There is no suspicious renal mass. There is no hydronephrosis. There are no suspected calculi within the kidneys, ureters or urinary bladder. Urinary bladder is within normal limits given degree of distention. No suspicious pelvic mass. No suspicious osseous abnormality is identified. IMPRESSION: 1. Interval increase in groundglass nodule in the left upper lobe previously measuring 8 mm and currently measuring 10 mm. 3-6 month follow-up chest CT may be of benefit to assess stability. 2. Status post left mastectomy. No new or enlarging thoracic, abdominal or pelvic lymphadenopathy. 3. 5 mm hypodensity in segment VIII remains indeterminate however less suspicious given stability since prior examination. 4. Stable bilateral adrenal nodules. 5. No suspicious nodularity or inflammation at the anastomosis within the pelvis. No evidence for recurrent or residual disease. No suspicious peritoneal nodules. Electronically signed by: Joellen Young MD (02/22/2019 4:40 PM) [facility]
== END | disposition home or self-care (01) ==
LOC: CT 08:12
PROVIDERS: ATTEND Internal Medicine Hematology & Oncology
DX: C20 Malignant neoplasm of rectum (principal); C50.212 Malignant neoplasm of upper-inner quadrant of left female breast; J98.11 Atelectasis; I70.0 Atherosclerosis of aorta; K43.9 Ventral hernia without obstruction or gangrene; N28.1 Cyst of kidney, acquired; E27.8 Other specified disorders of adrenal gland; R91.1 Solitary pulmonary nodule; Z17.0 Estrogen receptor positive status [ER+]; Z88.0 Allergy status to penicillin; Z88.8 Allergy status to other drugs, medicaments and biological substances
CPT/HCPCS: 71260; 74177; Q9966; Q9967

== ENCOUNTER → 2019-06-08 | Outpatient (CLI) | payer OTHER ==
[2018-01-05 11:00] VITALS: BP 130/59
[~2019-06-08] MED LIST changes: -CONTRAST GIVEN. MC PRN
--- NOTE | 2019-06-08 12:21 | RAD ---
PQRS Compliance Statement: One or more of the following individualized dose reduction techniques were utilized for this examination: 1. Automated exposure control 2. Adjustment of the mA and/or kV according to patient size 3. Use of iterative reconstruction technique CT CHEST ABD PELVIS W/CONTRAST 06/08/2019 9:30 AM INDICATION: Breast cancer COMPARISON: CT chest, abdomen and pelvis 02/22/2019 TECHNIQUE: Multiple axial CT images of the chest, abdomen and pelvis were obtained after the intravenous administration of 60 mL Omnipaque 300. Coronal and sagittal reformats are provided. Oral contrast was administered. FINDINGS: Thyroid gland is normal in appearance. There are no pathologically enlarged thoracic lymph nodes. Heart size within normal limits. There is no pericardial effusion. Stable 10 mm groundglass nodule in the left upper lobe (series 2, image 17). No new or enlarging solid noncalcified pulmonary nodules are identified. There is subsegmental atelectasis and/or scarring in the right lung base. There are no pleural effusions, pulmonary vascular congestion or pneumothorax. Left mastectomy changes are present. Hypoattenuation of the hepatic parenchyma suggestive of hepatic steatosis. Stable 6 monitor hypodensity in segment VIII. No new or enlarging hepatic lesions. Left adrenal nodule is stable measuring 11 mm. Right adrenal nodule is stable measuring 15 x 13 mm, not significant change when measured in similar dimensions. Spleen, pancreas and gallbladder are normal in appearance. Abdominal aorta is normal in course and caliber. No new or enlarging thoracic lymph nodes. No free fluid or free intracranial air. Ventral supra umbilical hernia attending fat measures 10 mm (series 4, image 32). No suspicious peritoneal nodules. Simple right renal cyst in the superior pole right kidney measures 6.2 cm. Small and large bowel are normal in caliber. There is no evidence for bowel obstruction. There are no pericolonic inflammatory changes. A normal, nondilated appendix is visualized without adjacent inflammatory changes. Opacified bowel loops since her normal mucosal fold pattern. Bowel anastomosis is noted at the rectosigmoid junction without adjacent mural nodularity. Mild diverticulosis. Urinary bladder is within normal limits given degree of distention. No suspicious pelvic mass status post hysterectomy. Minimal levoconvex scoliosis of the thoracolumbar spine. No suspicious osseous lesions are identified. IMPRESSION: 1. Stable groundglass nodule in the left upper lobe measuring 10 mm. Continued follow-up is recommended as differential considerations include infectious/inflammatory etiology versus adenocarcinoma in situ/minimally invasive adenocarcinoma. 2. Status post left mastectomy. No new or enlarging pathologic lymphadenopathy. 3. Stable subcentimeter hypodensity in the segment VIII, presumed benign. 4. Stable bilateral adrenal nodules. 5. No suspicious peritoneal or pelvic disease. Electronically signed by: Joellen Young MD (06/08/2019 12:18 PM) [id number]
== END | disposition home or self-care (01) ==
LOC: CT 11:03
PROVIDERS: ATTEND Internal Medicine Hematology & Oncology
DX: C50.212 Malignant neoplasm of upper-inner quadrant of left female breast (principal); J98.11 Atelectasis; R91.1 Solitary pulmonary nodule; E27.8 Other specified disorders of adrenal gland; K42.9 Umbilical hernia without obstruction or gangrene; N28.1 Cyst of kidney, acquired; K57.90 Diverticulosis of intestine, part unspecified, without perforation or abscess without bleeding; M41.85 Other forms of scoliosis, thoracolumbar region; Z90.12 Acquired absence of left breast and nipple; Z88.0 Allergy status to penicillin; Z88.8 Allergy status to other drugs, medicaments and biological substances
CPT/HCPCS: 71260; 74177; Q9966; Q9967

== ENCOUNTER → 2020-01-10 | Outpatient (CLI) | payer MEDICARE ==
[2018-01-05 11:00] VITALS: BP 130/59
--- NOTE | 2020-01-10 12:59 | RAD ---
CT scan of the chest, abdomen and pelvis with contrast 01/10/2020 CLINICAL HISTORY: Breast and rectal cancer. TECHNIQUE: After the oral and intravenous administration of contrast, contiguous, 5 mm axial sections were obtained through the chest, abdomen and pelvis. 75 cc of Omnipaque 300 were administered intravenously during this examination. One or more of the following individualized dose reduction techniques were utilized for this study: 1. Automated exposure control. 2. Adjustment of the mA and/or kV according to patient size. 3. Use of iterative reconstruction technique. FINDINGS: Comparison study is dated 06/08/2019. The patient is post left mastectomy. Scattered atherosclerotic calcification of the thoracic aorta and its branches is noted. The thoracic aorta is tortuous but tapers normally. There is mild cardiomegaly. No hilar, mediastinal or axillary lymphadenopathy is seen. A 1 cm groundglass attenuation nodule is seen within the left upper lobe (series #2, image 19). This is unchanged from the previous examination. No new pulmonary nodule is seen. Areas of probable scarring are seen involving the right middle lobe and lingula. Linear bands of subsegmental atelectasis are seen involving the right lower lobe. Minimal dependent subsegmental atelectasis is seen involving the left lower lobe. No area of consolidation is seen. No pleural effusion or pneumothorax is noted. A 5 mm rounded low-attenuation lesion is seen involving the superior aspect of the liver consistent with a hepatic cyst. It is unchanged. The spleen and pancreas are within normal limits. A 1.8 cm oval-shaped nodule is seen involving the right adrenal gland and a 1 cm rounded nodule is seen involving the left adrenal gland. They are consistent with adrenal adenomas. They are unchanged. A 6.5 cm rounded low-attenuation lesion is seen posterior pole the right kidney. Rounded low-attenuation lesions are seen involving the left kidney which measure 5 mm in size. They likely represent cysts. They are unchanged. No further imaging workup is recommended. Atherosclerotic calcification of the abdominal aorta and its branches is noted. The gallbladder is contracted. There is no evidence of bowel obstruction. The appendix is well-visualized and is within normal limits. Atherosclerotic calcification of the abdominal aorta and its branches is noted. The abdominal aorta tapers normally. No retroperitoneal lymphadenopathy is seen. Images through the pelvis demonstrate the urinary bladder distended with urine. An anastomosis is seen involving the sigmoid colon within the lower pelvis. No pelvic or inguinal lymphadenopathy is seen. No free fluid is noted. Mild S-shaped curvature of the thoracolumbar spine is seen. Degenerative changes are seen involving the thoracic and throughout the lumbar spine along with both hips. IMPRESSION: 1. Stable CT appearance of the 1 cm groundglass nodule within the left upper lobe. No new pulmonary nodule is seen. 2. There is no CT evidence of metastatic disease involving the abdomen or pelvis. Electronically signed by: Ambrose Mckee MD (01/10/2020 12:56 PM) [id number]
== END | disposition home or self-care (01) ==
LOC: CT 07:38
PROVIDERS: ATTEND Internal Medicine Hematology & Oncology
DX: C50.212 Malignant neoplasm of upper-inner quadrant of left female breast (principal); C20 Malignant neoplasm of rectum; D35.01 Benign neoplasm of right adrenal gland; I70.0 Atherosclerosis of aorta; I51.7 Cardiomegaly; J98.11 Atelectasis; N63.22 Unspecified lump in the left breast, upper inner quadrant; N28.89 Other specified disorders of kidney and ureter; Z17.0 Estrogen receptor positive status [ER+]; M47.815 Spondylosis without myelopathy or radiculopathy, thoracolumbar region; M16.0 Bilateral primary osteoarthritis of hip; Z88.0 Allergy status to penicillin; Z88.8 Allergy status to other drugs, medicaments and biological substances
CPT/HCPCS: 71260; 74177

== ENCOUNTER → 2020-01-12 | Outpatient (CLI) | payer MEDICARE, OTHER ==
[2018-01-05 11:00] VITALS: BP 130/59
[~2020-01-12] MED LIST changes: -IOHEXOL 240 MG/ML 50ML VIAL. PO ONE; -IOHEXOL 300 MG/ML 100ML VIAL. IV ONE
--- NOTE | 2020-01-12 10:39 | RAD ---
DATE: 01/12/2020 8:55 AM EXAM: MAMMO SARKIS DIAG RT HISTORY: Patient due for screening. Status post left mastectomy for invasive ductal carcinoma in 2018, and right breast core needle biopsy showing fibroadenoma with atypical lobular hyperplasia and lobular carcinoma in situ.. COMPARISON: Right diagnostic mammogram of 12/09/2017, right breast ultrasound guided biopsy and post biopsy right mammogram of 12/15/2017. TECHNIQUE: CC and MLO views of the right breast were obtained with 2-D and 3-D technique and reviewed with computer-aided detection. FINDINGS: Breast Density: SCATTERED The breast parenchyma shows scattered fibroglandular densities. Breast parenchyma level B Previously biopsied lobulated mass in the upper outer quadrant middle third right breast shows on 3-D imaging irregular posterior margins that could be postbiopsy changes but represents a change from previous mammographic appearance and is considered suspicious. Coarse heterogeneous calcifications remain present within this mass. It measures approximately 12 mm in size, not significantly changed from the previous exam. No other findings in the right breast. IMPRESSION: Suspicious margin irregularity and a 12 mm mass previously biopsied as a fibroadenoma but containing changes of atypical lobular hyperplasia. Recommend surgical consult for consideration of excisional biopsy. BI-RADS CATEGORY: 4 SUSPICIOUS ABNORMALITY- BIOPSY SHOULD BE CONSIDERED RECOMMENDED FOLLOW-UP: SURG SURGICAL CONSULTATION Discussed with Dr. Benitez by telephone at 9:53 AM on 01/12/2020 PQRS compliance statement: Patient information was entered into a reminder system with a target due date for the next mammogram. Mammography is a sensitive method for finding small breast cancers, but it does not detect them all and is not a substitute for careful clinical examination. A negative mammogram does not negate a clinically suspicious finding and should not result in delay in biopsying a clinically suspicious abnormality. "Our facility is accredited by the [employer] Mammography [employer]."
== END | disposition home or self-care (01) ==
LOC: MAMMO 08:57
PROVIDERS: ATTEND Internal Medicine Hematology & Oncology
DX: R92.2 Inconclusive mammogram (principal); C50.212 Malignant neoplasm of upper-inner quadrant of left female breast; Z17.0 Estrogen receptor positive status [ER+]
CPT/HCPCS: 77065; G0279; 77061

== ENCOUNTER → 2020-02-13 | Outpatient (CLI) | payer MEDICARE ==
[2018-01-05 11:00] VITALS: BP 130/59
[~2020-02-13] MED LIST changes: +LIDOCAINE 2%/EPI 1:100,000 20 ML VIAL. IJ ONE
--- NOTE | 2020-02-13 11:43 | RAD ---
Examination: 1. Right breast stereotactic core needle biopsy. 2. Right breast digital postprocedure mammogram. INDICATION: 79-year-old woman with history of previous left mastectomy for breast cancer and atypical lobular hyperplasia and lobular carcinoma in situ in the previous right breast biopsy showing suspicious interval change in mammographic appearance on recent screening and therefore recommended for biopsy. This was at the posterior margin of the residual mass on mammography. COMPARISON: Ultrasound-guided core needle biopsy images of both breasts on 12/15/2017 and the bilateral post procedure mammogram of 12/15/2017, right diagnostic mammogram of 01/12/2020. TECHNIQUE: Given the presence of residual calcifications in the bilobed mass previously targeted for biopsy, decision was made to pursue repeat biopsy with stereotactic mammographic imaging guidance rather than by ultrasound. Patient's referring provider had requested a repeat biopsy prior to surgical consult. An appropriate procedural pause was observed after informed consent was obtained. Standard sterile technique, mammographic imaging guidance and local anesthesia using lidocaine at the skin surface and lidocaine with epinephrine deeper in the breast tissue was utilized in obtaining multiple 19-gauge vacuum-assisted core biopsy samples of the mass in the upper outer right breast that had previously been targeted for biopsy under ultrasound guidance. A craniocaudal approach was taken and the specimen was radiographed. The specimen radiograph showed successful sampling of the smaller calcification more posteriorly near the irregular posterior margin. Additional tissue samples targeting the larger calcification acquired more tissue but without sampling the larger 12 mm calcification located more anteriorly within the bilobed mass. After satisfactory tissue sampling, secure gissell titanium biopsy marker shaped like a terrance was deployed at the biopsy site using a 13 cm long device. The needle was removed and hemostasis assured with direct breast compression for 10 minutes. Thereafter, the puncture site was dressed, postprocedure instructions reviewed and a post procedure mammogram obtained. The digital right post procedure mammogram showed the new biopsy marker was possibly 3 cm caudal to the biopsy cavity and that the calcification along the posterior margin of the biopsy target was no longer present, confirming successful targeting of the posterior margin of the right breast mass. A curvilinear coarse residual calcification remain present at the anterior aspect of the mass. The biopsy marker I deployed is similar in shape to the previous biopsy marker deployed under ultrasound, both being terrance shaped. The prior biopsy marker is still in good position. Patient was discharged in stable condition to follow-up with her referring provider. There were no apparent complications. IMPRESSION: Successful stereotactic guided right breast core needle biopsy targeting a 12 mm mass with internal calcifications in the upper outer quadrant right breast. This mass has previously been biopsied and shown to be a fibroadenoma containing atypical lobular hyperplasia and lobular carcinoma in situ. It was rebiopsied because of a change in the posterior margin that could reflect post biopsy scarring but tissue sampling was pursued to confirm absence of malignancy. The targeted posterior margin was successfully sampled this visit with sampling of the smaller of 2 calcifications within the mass. Pathology results are pending. An addendum will be issued after pathology results become available.
--- NOTE | 2020-02-14 15:08 | PATHOLOGY ---
[facility] Accession Number: [id number] . 01 Material submitted: . breast - RIGHT BREAST MASS, 11:00, 6CMFN. Modifiers: right, 11:00 . 01 Clinical history: . Right breast mass 11:00 6 cm from nipple; 12 mm . 02 Diagnosis: Breast tissue, right breast mass 11:00 needle biopsies: - Ancient fibroadenoma. (MCKAYLAM:adalberto; 02/14/2020) R 02/14/2020 1406 Local . 02 Comment: There is no evidence of malignancy. (JPM:adalberto; 02/14/2020) . 02 Electronically signed: . Juan Sullivan MD, Pathologist NPI- [id number] . 01 Gross description: . The specimen is received in formalin, labeled "[employer] [place], right breast mass". Received are multiple needle cores of fibrofatty tissue measuring 2.8 x 2.7 x 0.3 cm in aggregate dimensions. Also received within the container is a plastic cassette containing multiple needle cores of fibrofatty tissue measuring 2.2 x 1.8 x 0.4 cm in aggregate dimensions. The suspect tissue is transferred to cassette A1, with the remainder of the specimen is spitted in cassettes A2 and A3. The cold ischemic time is 8 minutes. The total formalin fixation time is 13 hours and 24 minutes. ([facility]; 02/13/2020) QAC/QAC 02/14/2020 1404 Local . 02 Pathologist provided ICD-10: D24.1 . 02 CPT . 032504 Specimen Comment: A courtesy copy of this report has been sent to [phone] Specimen Comment: [id number], Specimen Comment: Report sent to , DR DE GUZMAN / DR SALCEDO Performed at: [address] [facility] [address], [place], [place] [id number] MD Trev Selby MD Phone: [phone] Performed at: 02 [facility] [address] [place], [place] [id number] MD Juan Sullivan MD Phone: [phone]
== END | disposition home or self-care (01) ==
LOC: MAMMO 09:28
PROVIDERS: ATTEND Surgery
DX: D24.1 Benign neoplasm of right breast (principal); I10 Essential (primary) hypertension; J45.909 Unspecified asthma, uncomplicated; Z98.890 Other specified postprocedural states; Z79.899 Other long term (current) drug therapy
CPT/HCPCS: 19081; 77022; 77065; 88305; C1713; 19085

== ENCOUNTER → 2020-03-02 | Outpatient (CLI) | payer MEDICARE ==
[2018-01-05 11:00] VITALS: BP 130/59
[~2020-03-02] MED LIST changes: +ANAS1TAB47 PO; -LIDOCAINE 2%/EPI 1:100,000 20 ML VIAL. IJ ONE; +MULT-505 PO
== END | disposition home or self-care (01) ==
LOC: LAB 12:22
PROVIDERS: ATTEND Surgery
DX: Z20.828 Contact with and (suspected) exposure to other viral communicable diseases (principal)
CPT/HCPCS: U0003-CS

== ENCOUNTER 2020-03-06 05:50 | Inpatient (IN) | payer MEDICARE ==
[~2020-03-06] VITALS: Ht 156.2 cm; Wt 81.8 kg
[2020-03-06] VITALS (8 sets, daily range): BP systolic 112–161; BP diastolic 67–87
[~2020-03-06 05:50] MED LIST changes: +CLINDAMYCIN 900MG PREMIX 50 ML IV ONE
[2020-03-06] MEDS ORDERED: CLINDAMYCIN 900MG PREMIX 50 ML IV ONE (06:36)
[2020-03-06] MEDS ORDERED: ONDANSETRON PF 4 MG/2 ML VIAL. IV PRN (07:00)
[2020-03-06] MEDS ORDERED: MORPHINE SULFATE 2 MG/ML VIAL. IV PRN (07:00)
[2020-03-06] MEDS ORDERED: HYDROmorphone 2 MG/ML VIAL IV PRN (07:00)
[2020-03-06] MEDS ORDERED: PROCHLORPERAZINE 10 MG/2 ML VIAL. IV PRN (07:00)
[2020-03-06] MEDS ORDERED: fentaNYL PF VIAL 100 MCG/2 ML VIAL IV PRN (07:00)
[2020-03-06] MEDS ORDERED: LIDOCAINE 1% PF 2 ML VIAL. ID PRN (07:00)
[2020-03-06] MEDS ORDERED: IV RINGERS,LACTATED 1000ML 1,000 ML IV SCH (07:00)
[2020-03-06] MEDS ORDERED: PROPOFOL 10 MG/ML (20ML) VIAL. IV ONE (07:08)
[2020-03-06] MEDS ORDERED: SUCCINYLCHOLINE 200 MG/10 ML VIAL. ONE (07:08)
[2020-03-06] MEDS ORDERED: LIDOCAINE 2% PF 5 ML VIAL. ONE (07:08)
[2020-03-06] MEDS ORDERED: ROCURONIUM 50 MG/5 ML VIAL. ONE (07:09)
[2020-03-06] MEDS ORDERED: fentaNYL PF VIAL 100 MCG/2 ML VIAL ONE ×2 (07:09→13:15)
[2020-03-06] MEDS ORDERED: BUPIVACAINE-EPI 0.5%-1:200000 MPF 30 ML VIAL. ONE (07:33)
[2020-03-06] MEDS ORDERED: DEXAMETHASONE SOD PHOS 4 MG/ML VIAL ONE (07:44)
[2020-03-06] MEDS ORDERED: DESFLURANE 61 TO 120 MINUTES IH ONE (07:44)
[2020-03-06] MEDS ORDERED: fentaNYL PF VIAL 250 MCG/5 ML VIAL ONE (08:12)
[2020-03-06] MEDS ORDERED: NEOSTIGMINE METHYLSULFATE 5 MG/5 ML SYRINGE. ONE (10:24)
[2020-03-06] MEDS ORDERED: GLYCOPYRROLATE 1 MG/5 ML VIAL. ONE (10:24)
[2020-03-06] MEDS ORDERED: ONDANSETRON PF 4 MG/2 ML VIAL. ONE (10:24)
[2020-03-06] MEDS: IV NORMAL SALINE 1000ML BAG 1,000 ML IV SCH (12:48)
[2020-03-06] MEDS ORDERED: ONDANSETRON PF 4 MG/2 ML VIAL. IVP PRN (13:00)
[2020-03-06] MEDS ORDERED: 0.9 % SODIUM CHLORIDE 10 ML DISP.SYRIN. IV PRN (13:00)
[2020-03-06] MEDS ORDERED: NALOXONE 0.4 MG/ML VIAL. IV PRN (13:00)
--- NOTE | 2020-03-06 13:03 | PDOC4 ---
Operative Note Operative Note Operative Note: Preoperative Diagnosis: Descending colon cancer Postoperative Diagnosis: Same Procedure: Exploratory laparoscopy, open left colon resection with splenic flexure mobilization, small bowel resection Surgeon: Guzman Progress Worker: Pierre LERNER Anesthesia: General EBL: 300 mL Specimen: Descending colon, small bowel segment to path Drains: Benson drain to subcutaneous tissues Complications: None Indication: The patient is a 80-year-old female who on colonoscopy was found to have a malignant appearing tumor in the region of the descending colon. She was offered surgical treatment with a colon resection. We plan to attempt a laparoscopic approach however she understands a significant chance of needing an open resection. Other risks of surgery were noted which include bleeding, infection, anastomotic leak, visceral injury, pain, anesthetic risk, hernia formation, small bowel obstruction, potential need for additional surgery procedure. She understands and would like to proceed. Description: The patient was taken the operating room and placed supine on the operating table. General anesthesia was performed. She was then placed in lithotomy. The abdomen is prepped with ChloraPrep and draped in standard surgical manner. A small right upper quadrant incision was made in the skin through which a visualized 5 mm trocar was inserted. There appeared to be adhesions obscuring pneumoperitoneum. We then made a left upper quadrant incision with a scalpel. Through this incision a visualized 5 mm trocar was inserted and a pneumoperitoneum was created. The patient had severe adhesions involving small bowel and omentum throughout the entire abdomen. We elected to convert to an open procedure. A vertical midline incision was made in the skin with a scalpel. Cautery dissection was carried down to the fascia. The fascia and peritoneum were then divided. As noted the patient had severe adhesions involving the omentum and multiple small bowel loops which included the anterior abdominal wall. An extensive lysis of adhesions was required which took co nsiderable time. In total over 1-1/2 hours was required for lysis of adhesions. Some loops of the small bowel were densely incorporated to the anterior abdominal wall and two separate enterotomies were made. Both were repaired in two layers using PDS for the first layer and 3-0 Vicryl interrupted sutures in the seromuscular layer. During the lysis of adhesions we were able to identify staining from [place] ink tattooing in the left upper quadrant. We identified the left colon and found the area of concern in the proximal descending colon. We mobilized the entire left colon dividing all of the lateral peritoneal attachments. The splenic flexure was also taken down using primarily cautery with some assistance of the LigaSure device. The omentum was quite dense and scarred in and this was mobilized away from the colon. Portions of the thickened omentum were excised to facilitate dissection. We divided the large bowel proximal to the involved area in the mid transverse colon with a OTONIEL 75 stapler. Similarly the large bowel was divided in the distal descending region using the stapling device. The mesentery of the involved segment of colon was mobilized. Blood vessels were ligated with 2-0 Vicryl and divided. The LigaSure device assisted with mesenteric dissection. The colon segment was fully excised and sent to pathology. Gross pathologic evaluation confirmed the tumor to be present with good gross margins. A two layer handsewn anastomosis was then constructed. The posterior seromuscular layer was developed first with interrupted 3-0 Vicryl sutures. The staple lines were excised and the next layer was constructed with 3-0 PDS in a running locked fashion. The anterior seromuscular was then completed with interrupted 3-0 Vicryl. We then reinspected the small bowel that had been mobilized. I elected to do a focal resection of one of the small bowel loops that had the enterotomy repair as I was concerned about the lumen being narrowed. The small bowel segments were divided proximal and distal to this area. The mesenteric vessels were ligated with 2-0 Vicryl and the segment was sent to pathology. The small bowel lumen was quite small and we elected for a [id number], functional end-to-end stapled anastomosis. The OTONIEL-75 stapling device was inserted into both limbs of the small bowel. The stapler was deployed creating the anastomosis. The common enterotomy was oversewn with 3-0 PDS. All of the staple lines were reinforced with 3-0 Vicryl placed in seromuscular layer. Mesenteric defect was closed with 3-0 Vicryl. The abdominal cavity was then irrigated with sterile saline which was suctioned. No other gross abnormalities were noted and hemostasis was good. The fascia was approximated with a running 1 PDS suture. A Benson drain was left in the subcutaneous tissue which exited inferiorly. This was secured to the skin with 3-0 Vicryl. The subcutaneous tissue was closed with 3-0 Vicryl and skin approximated with 4-0 Monocryl. A sterile dressing was then applied. The patient tolerated the procedure well and sent to the recovery room in stable condition. At the end of the case all counts were correct. FABIOLA DE GUZMAN MD Mar 06, 2020 13:03
[2020-03-06] MEDS: fentaNYL PF VIAL 100 MCG/2 ML VIAL IV PRN ×2 (13:17→13:30)
[2020-03-06] MEDS: HYDROmorphone 12mg/30ml PCA 30 ML IV PRN (13:51)
--- NOTE | 2020-03-06 16:26 | NUR ---
received from recovery. she is alert and oriented x4. ng is to suction; no drainage noted. Pete to dd patent with yellow urine. abdominal dressing is clean dry and intact; abdominal binder in place. instructed on the usage of the [employer] verbalized understanding of these instructions. history completed.
[2020-03-06] MEDS: IV 1/2 NORMAL SALINE 1,000 ML IV SCH (19:02)
[2020-03-07 03:02] VITALS: BP 114/65
[2020-03-07 07:33] LABS: BASO % 0 % (0-3); EOS % 0 % (0-3); HEMATOCRIT 37.6 % (36.0-47.0); HEMOGLOBIN 12.7 g/dL (12.0-15.5); LYMPH # 0.6 x10^3/uL (1.0-4.8); LYMPH % 4 % (24-48); MEAN CORPUSCULAR HEMOGLOBIN 30 pg (25-35); MEAN CORPUSCULAR HGB CONC 34 g/dL (31-37); MEAN CORPUSCULAR VOLUME 89 fL (79-100); MONO # 1.5 x10^3/uL (0.0-1.1); MONO % 10 % (0-9); NEUT % 86 % (31-73); PLATELET COUNT 264 x10^3/uL (140-400); RED BLOOD COUNT 4.22 x10^6/uL (3.50-5.40); RED CELL DISTRIBUTION WIDTH 13.8 % (11.5-14.5); WHITE BLOOD COUNT 15.1 x10^3/uL (4.0-11.0)
[2020-03-07 07:36] VITALS: BP 118/79
[2020-03-07 08:11] LABS: CREATININE 0.9 mg/dL (0.6-1.0); GFR 73.3
--- NOTE | 2020-03-07 08:24 | NUR ---
1 mg Morphine give d/t pt explaining seeing flies on the ceiling.
--- NOTE | 2020-03-07 08:49 | PDOC ---
Provider Note Provider Note Pt seen . Full consult to be dictated. Thanks Dr. Britton Justicifation of Admission Dx: Justifications for Admission: Justification of Admission Dx: Yes Comments: STEPHANIE Cueto MD Mar 07, 2020 08:49
[2020-03-07] MEDS: IV 1/2 NORMAL SALINE 1,000 ML IV SCH ×3 (10:00→20:46)
--- NOTE | 2020-03-07 10:34 | NUR ---
SW following. Discussed with RN, pt from home alone, NPO - wants NG out, PT/OT ordered. SW will continue to follow.
[2020-03-07 10:49] LABS: % ATYL 1 % (0-0); % BANDS 17 % (0-9); % LYMPHS 5 % (24-48); % MONOS 7 % (0-10); % SEGS 70 % (35-66)
[2020-03-07 10:50] LABS: PLT ESTIMATE ADEQUATE (ADEQUATE)
[2020-03-07 10:53] VITALS: BP 130/71
[2020-03-07] MEDS: ENOXAPARIN 40 MG/0.4 ML SYRINGE. SQ SCH (11:04)
[2020-03-07] MEDS: IV NORMAL SALINE 1000ML BAG 1,000 ML IV SCH (12:48)
--- NOTE | 2020-03-07 12:53 | CONS ---
DATE OF CONSULTATION: 03/07/2020 LOCATION: 432. ATTENDING PHYSICIAN: Pb Hinds MD REASON FOR CONSULTATION: Primary care followup hypertension. HISTORY OF PRESENT ILLNESS: The patient is a 80-year-old female, patient of Dr. Lafleur. She has a history of hypertension, diabetes, chronic kidney disease stage 2-3, hyperlipidemia and she was diagnosed with descending colon cancer and the patient underwent exploratory laparotomy, left colon resection and I was asked to see for primary care medical management. PAST MEDICAL HISTORY: As mentioned above, the patient has a history of diabetes, hypertension, history of breast cancer, osteopenia, obesity. PAST SURGICAL HISTORY: Right ankle surgery, hysterectomy, mastectomy. ALLERGIES: PENICILLIN AND LOSARTAN. MEDICATIONS: Amlodipine 5 mg, Arimidex 1 mg, multivitamin daily. FAMILY HISTORY: Positive for leukemia in the father, lymphoma in sister. PERSONAL HISTORY: No history of smoking, alcohol, or drug abuse. REVIEW OF SYMPTOMS: The patient feels better now. PHYSICAL EXAMINATION: GENERAL: The patient is not in distress. VITAL SIGNS: Temperature 97, pulse 72, respirations 18, blood pressure 130/82, 96 on 2 liters. HEENT: Head is atraumatic. Pupils equal. Oral cavity: No congestion. CARDIOVASCULAR: S1, S2. LUNGS: Clear to auscultation. ABDOMEN: There is a binder present. Did not examine. The patient has a Pete catheter. RECTAL: Deferred. EXTREMITIES: No calf tenderness. No edema. The patient has a NG tube to suction. LABORATORY DATA: Shows a white count of 15, hemoglobin 12, platelets 262. Electrolytes with sodium 140, potassium 4.0, chloride 106, bicarb 23, BUN 16, creatinine 0.9, glucose 115. The patient had a CT of the chest, abdomen, and pelvis 2 months ago, which shows no evidence of metastasis and a 1-cm nodule in the left upper lobe in the lung. FINAL IMPRESSION: 1. The patient had a left colectomy for colon cancer. 2. History of hypertension, stable. 3. History of previous borderline diabetes, stable. 4. History of hypertension and hyperlipidemia. PLAN: At this time, we will follow with Dr. Hinds. Continue incentive spirometry, DVT prevention, PT/OT and see how she improves. Her white count is slightly elevated, probably reactive from surgery; we will follow it closely. Thank you, Dr. Hinds, for allowing me to participate in the care of this patient. STEPHANIE MOURA MD DR: LADI/daniel JOB#: [id number] / [id number]
--- NOTE | 2020-03-07 14:04 | PDOC ---
PROGRESS NOTES Date of Service DATE: 03/07/20 TIME: 14:03 Subjective Subjective bothered by the NG tube Objective Objective Vital Signs Date Time Temp Pulse Resp B/P (MAP) Pulse Ox O2 Delivery O2 Flow Rate FiO2 03/07/20 10:53 98.4 67 20 130/71 (90) 96 Room Air 98.4 03/06/20 19:21 2.0 Intake and Output 03/07/20 07:00 Intake Total 1885 ml Output Total 1350 ml Balance 535 ml Intake Oral 85 ml IV Total 1800 ml Output Urine Total 950 ml Gastric Drainage Total 100 ml Drainage Total 0 ml Estimated Blood Loss 300 ml Physical Exam Abdomen: Soft (dressing clean and dry) Assessment Assessment POD 1 bowel resection Plan Plan of Care Postop care, await bowel function Comment Review of Relevant I have reviewed the following items gissell (where applicable) has been applied. Labs Laboratory Tests Test 03/07/20 03:45 White Blood Count 15.1 x10^3/uL (4.0-11.0) Red Blood Count 4.22 x10^6/uL (3.50-5.40) Hemoglobin 12.7 g/dL (12.0-15.5) Hematocrit 37.6 % (36.0-47.0) Mean Corpuscular Volume 89 fL (79-100) Mean Corpuscular Hemoglobin 30 pg (25-35) Mean Corpuscular Hemoglobin Concent 34 g/dL (31-37) Red Cell Distribution Width 13.8 % (11.5-14.5) Platelet Count 264 x10^3/uL (140-400) Neutrophils (%) (Auto) 86 % (31-73) Lymphocytes (%) (Auto) 4 % (24-48) Monocytes (%) (Auto) 10 % (0-9) Eosinophils (%) (Auto) 0 % (0-3) Basophils (%) (Auto) 0 % (0-3) Neutrophils # (Auto) 13.0 x10^3/uL (1.8-7.7) Lymphocytes # (Auto) 0.6 x10^3/uL (1.0-4.8) Monocytes # (Auto) 1.5 x10^3/uL (0.0-1.1) Eosinophils # (Auto) 0.0 x10^3/uL (0.0-0.7) Basophils # (Auto) 0.0 x10^3/uL (0.0-0.2) Segmented Neutrophils % 70 % (35-66) Band Neutrophils % 17 % (0-9) Lymphocytes % 5 % (24-48) Atypical Lymphocytes % (Manual) 1 % (0-0) Monocytes % 7 % (0-10) Platelet Estimate Adequate (ADEQUATE) Sodium Level 140 mmol/L (136-145) Potassium Level 4.0 mmol/L (3.5-5.1) Chloride Level 106 mmol/L (98-107) Carbon Dioxide Level 23 mmol/L (21-32) Anion Gap 11 (6-14) Blood Urea Nitrogen 16 mg/dL (7-20) Creatinine 0.9 mg/dL (0.6-1.0) Estimated GFR (Cockcroft-Gault) 73.3 Glucose Level 115 mg/dL (70-99) Calcium Level 9.0 mg/dL (8.5-10.1) Laboratory Tests Test 03/07/20 03:45 White Blood Count 15.1 x10^3/uL (4.0-11.0) Red Blood Count 4.22 x10^6/uL (3.50-5.40) Hemoglobin 12.7 g/dL (12.0-15.5) Hematocrit 37.6 % (36.0-47.0) Mean Corpuscular Volume 89 fL (79-100) Mean Corpuscular Hemoglobin 30 pg (25-35) Mean Corpuscular Hemoglobin Concent 34 g/dL (31-37) Red Cell Distribution Width 13.8 % (11.5-14.5) Platelet Count 264 x10^3/uL (140-400) Neutrophils (%) (Auto) 86 % (31-73) Lymphocytes (%) (Auto) 4 % (24-48) Monocytes (%) (Auto) 10 % (0-9) Eosinophils (%) (Auto) 0 % (0-3) Basophils (%) (Auto) 0 % (0-3) Neutrophils # (Auto) 13.0 x10^3/uL (1.8-7.7) Lymphocytes # (Auto) 0.6 x10^3/uL (1.0-4.8) Monocytes # (Auto) 1.5 x10^3/uL (0.0-1.1) Eosinophils # (Auto) 0.0 x10^3/uL (0.0-0.7) Basophils # (Auto) 0.0 x10^3/uL (0.0-0.2) Segmented Neutrophils % 70 % (35-66) Band Neutrophils % 17 % (0-9) Lymphocytes % 5 % (24-48) Atypical Lymphocytes % (Manual) 1 % (0-0) Monocytes % 7 % (0-10) Platelet Estimate Adequate (ADEQUATE) Sodium Level 140 mmol/L (136-145) Potassium Level 4.0 mmol/L (3.5-5.1) Chloride Level 106 mmol/L (98-107) Carbon Dioxide Level 23 mmol/L (21-32) Anion Gap 11 (6-14) Blood Urea Nitrogen 16 mg/dL (7-20) Creatinine 0.9 mg/dL (0.6-1.0) Estimated GFR (Cockcroft-Gault) 73.3 Glucose Level 115 mg/dL (70-99) Calcium Level 9.0 mg/dL (8.5-10.1) Medications Current Medications Ondansetron HCl (Zofran) 4 mg PRN Q6HRS PRN IV NAUSEA/VOMITING; Start 03/06/20 at 07:00; Stop 03/07/20 at 06:59; Status DC Fentanyl Citrate (Fentanyl 2ml Vial) 25 mcg PRN Q5MIN PRN IV MILD PAIN 1-3; Start 03/06/20 at 07:00; Stop 03/07/20 at 06:59; Status DC Fentanyl Citrate (Fentanyl 2ml Vial) 50 mcg PRN Q5MIN PRN IV MODERATE TO SEVERE PAIN Last administered on 03/06/20at 13:30; Start 03/06/20 at 07:00; Stop 03/07/20 at 06:59; Status DC Morphine Sulfate (Morphine Sulfate) 1 mg PRN Q10MIN PRN IV SEVERE PAIN 7-10; Start 03/06/20 at 07:00; Stop 03/07/20 at 06:59; Status DC Ringer's Solution 1,000 ml @ 30 mls/hr Q24H IV Last administered on 03/06/20at 06:46; Start 03/06/20 at 07:00; Stop 03/06/20 at 19:00; Status DC Lidocaine HCl (Xylocaine-Mpf 1% 2ml Vial) 2 ml PRN 1X PRN ID PRIOR TO IV START; Start 03/06/20 at 07:00; Stop 03/07/20 at 06:59; Status DC Hydromorphone HCl (Dilaudid) 0.5 mg PRN Q10MIN PRN IV SEV PAIN, Second choice; Start 03/06/20 at 07:00; Stop 03/07/20 at 06:59; Status DC Prochlorperazine Edisylate (Compazine) 5 mg PACU PRN PRN IV NAUSEA, MRX1; Start 03/06/20 at 07:00; Stop 03/07/20 at 06:59; Status DC Levofloxacin/ Dextrose 100 ml @ 100 mls/hr ONCE ONCE IV Last administered on 03/06/20at 08:00; Start 03/06/20 at 06:00; Stop 03/06/20 at 06:59; Status DC Clindamycin Phosphate 50 ml @ 100 mls/hr 1X ONCE IV Last administered on 03/05/20at 07:50; Start 03/05/20 at 18:45; Stop 03/05/20 at 19:14; Status DC Clindamycin Phosphate 50 ml @ As Directed STK-MED ONCE IV ; Start 03/06/20 at 06:36; Stop 03/06/20 at 06:36; Status DC Propofol (Diprivan) 200 mg STK-MED ONCE IV ; Start 03/06/20 at 07:08; Stop 03/06/20 at 07:09; Status DC Lidocaine HCl (Lidocaine Pf 2% Vial) 5 ml STK-MED ONCE .ROUTE ; Start 03/06/20 at 07:08; Stop 03/06/20 at 07:09; Status DC Succinylcholine Chloride (Anectine) 200 mg STK-MED ONCE .ROUTE ; Start 03/06/20 at 07:08; Stop 03/06/20 at 07:09; Status DC Rocuronium [place] (Zemuron) 50 mg STK-MED ONCE .ROUTE ; Start 03/06/20 at 07:09; Stop 03/06/20 at 07:09; Status DC Fentanyl Citrate (Fentanyl 2ml Vial) 100 mcg STK-MED ONCE .ROUTE ; Start 03/06/20 at 07:09; Stop 03/06/20 at 07:09; Status DC Bupivacaine HCl/ Epinephrine Bitart (Sensorcain-Epi 0.5%-1:168583 Mpf) 30 ml STK-MED ONCE .ROUTE ; Start 03/06/20 at 07:33; Stop 03/06/20 at 07:33; Status DC Dexamethasone Sodium Phosphate (Decadron) 4 mg STK-MED ONCE .ROUTE ; Start 03/06/20 at 07:44; Stop 03/06/20 at 07:44; Status DC Desflurane (Suprane) 60 ml STK-MED ONCE IH ; Start 03/06/20 at 07:44; Stop 03/06/20 at 07:44; Status DC Fentanyl Citrate (Fentanyl 5ml Vial) 250 mcg STK-MED ONCE .ROUTE ; Start 03/06/20 at 08:12; Stop 03/06/20 at 08:12; Status DC Ephedrine Sulfate (Akovaz) 50 mg STK-MED ONCE .ROUTE ; Start 03/06/20 at 09:05; Stop 03/06/20 at 09:05; Status DC Neostigmine [place] (Neostigmine Methylsulfate) 5 mg STK-MED ONCE .ROUTE ; Start 03/06/20 at 10:24; Stop 03/06/20 at 10:24; Status DC Glycopyrrolate (Robinul) 1 mg STK-MED ONCE .ROUTE ; Start 03/06/20 at 10:24; Stop 03/06/20 at 10:24; Status DC Ondansetron HCl (Zofran) 4 mg STK-MED ONCE .ROUTE ; Start 03/06/20 at 10:24; Stop 03/06/20 at 10:25; Status DC Enoxaparin Sodium (Lovenox 40mg Syringe) 40 mg Q24H SQ Last administered on 03/07/20at 11:04; Start 03/07/20 at 09:00 Sodium Chloride (Normal Saline Flush) 3 ml QSHIFT PRN IV AFTER MEDS AND BLOOD DRAWS; Start 03/06/20 at 13:00 Sodium Chloride 1,000 ml @ 100 mls/hr Q10H IV Last administered on 03/07/20at 00:00; Start 03/06/20 at 14:00 Naloxone HCl (Narcan) 0.4 mg PRN Q2MIN PRN IV SEE INSTRUCTIONS; Start 03/06/20 at 13:00 Sodium Chloride 1,000 ml @ 25 mls/hr Q24H IV ; Start 03/06/20 at 12:48 Hydromorphone HCl 30 ml @ 0 mls/hr CONT PRN PRN IV PER PROTOCOL Last adm inistered on 03/06/20at 13:51; Start 03/06/20 at 13:00 Ondansetron HCl (Zofran) 4 mg PRN Q6HRS PRN IVP NAUESA, 1ST CHOICE; Start 03/06/20 at 13:00 Fentanyl Citrate (Fentanyl 2ml Vial) 100 mcg STK-MED ONCE .ROUTE ; Start 03/06/20 at 13:15; Stop 03/06/20 at 13:15; Status DC Active Scripts Active Reported Once Daily (Multivitamin) 1 Each Tablet 1 Tab PO DAILY 30 Days Arimidex (Anastrozole) 1 Mg Tablet 1 Tab PO DAILY 30 Days Amlodipine Besylate 5 Mg Tablet 5 Mg PO DAILY Vitals/I & O Vital Sign - Last 24 Hours 03/06/20 03/06/20 03/06/20 03/06/20 14:10 14:14 14:30 15:00 Temp 98.0 97.3 98.0 97.3 Pulse 63 66 Resp 18 20 B/P (MAP) 154/69 150/77 (101) Pulse Ox 99 O2 Delivery Nasal Cannula Nasal Cannula Nasal Cannula O2 Flow Rate 2 2 2.0 03/06/20 03/06/20 03/06/20 03/06/20 15:00 15:08 15:30 16:35 Pulse 70 74 74 Resp 17 18 18 15 B/P (MAP) 158/87 (110) 141/67 (91) 161/80 (107) Pulse Ox 99 25 96 O2 Delivery Room Air O2 Flow Rate 2.0 2.0 03/06/20 03/06/20 03/06/20 03/06/20 17:30 18:31 19:21 20:00 Temp 97.5 97.9 97.5 97.9 Pulse 72 73 72 Resp 20 18 18 B/P (MAP) 135/78 (97) 151/77 (101) 120/82 (95) Pulse Ox 94 94 96 O2 Delivery Nasal Cannula Nasal Cannula Nasal Cannula Room Air O2 Flow Rate 2.0 2.0 2.0 03/06/20 03/07/20 03/07/20 03/07/20 23:00 03:02 07:36 10:53 Temp 97.5 98.5 98.9 98.4 97.5 98.5 98.9 98.4 Pulse 76 80 73 67 Resp 22 B/P (MAP) 112/73 (86) 114/65 (81) 118/79 (92) 130/71 (90) Pulse Ox 95 95 95 96 O2 Delivery Nasal Cannula Room Air Room Air Room Air Intake and Output 03/06/20 03/06/20 03/07/20 15:00 23:00 07:00 Intake Total 1825 ml 0 ml 60 ml Output Total 1000 ml 100 ml 250 ml Balance 825 ml -100 ml -190 ml Justicifation of Admission Dx: Justifications for Admission: Justification of Admission Dx: Yes FABIOLA DE GUZMAN MD Mar 07, 2020 14:04
[2020-03-07 14:55] VITALS: BP 124/56
[2020-03-07 19:00] VITALS: BP 148/69
[2020-03-07 23:00] VITALS: BP 124/66
[2020-03-08 03:00] VITALS: BP 132/58
[2020-03-08] MEDS: IV 1/2 NORMAL SALINE 1,000 ML IV SCH ×2 (06:27→17:05)
[2020-03-08 07:15] VITALS: BP 139/71
--- NOTE | 2020-03-08 08:51 | PDOC ---
PROGRESS NOTES Date of Service: DATE: 03/08/20 TIME: 08:48 Subjective Subjective feels good Objective Objective Vital Signs Date Time Temp Pulse Resp B/P (MAP) Pulse Ox O2 Delivery O2 Flow Rate FiO2 03/08/20 07:15 97.3 71 18 139/71 (93) 96 Room Air 97.3 03/08/20 03:00 2.0 Intake and Output 03/08/20 07:00 Intake Total 250 ml Output Total 200 ml Balance 50 ml Intake Oral 250 ml Output Urine Total 200 ml Physical Exam Abdomen: Soft (dressing clean and dry) Heart: Regular rate Extremities: No clubbing General: Alert HEENT: Atraumatic Lungs: Clear to auscultation MUSCULOSKELETAL: No deformity Neck: Supple Neuro: Normal speech Psych/Mental Status: Mental status NL Skin: No breakdown COMMENT ngt Assessment Assessment FINAL IMPRESSION: 1. The patient had a left colectomy for colon cancer. 2. History of hypertension, stable. 3. History of previous borderline diabetes, stable. 4. History of hypertension and hyperlipidemia. PLAN: POD#2. iv fluids dvt prevention, on lovenox wbc 15 reactive incentive spiromtry. stable post op course labs for tomorrow. At this time, we will follow with Dr. Hinds. Continue incentive spirometry, DVT prevention, PT/OT and see how she improves. Her white count is slightly elevated, probably reactive from surgery; we will follow it closely. Comment Review of Relevant I have reviewed the following items gissell (where applicable) has been applied. Medications Current Medications Enoxaparin Sodium (Lovenox 40mg Syringe) 40 mg Q24H SQ Last administered on 03/07/20at 11:04; Start 03/07/20 at 09:00 Vitals/I & O Vital Sign - Last 24 Hours 03/07/20 03/07/20 03/07/20 03/07/20 10:53 14:55 19:00 19:40 Temp 98.4 98.7 98.8 98.4 98.7 98.8 Pulse 67 61 70 Resp 18 19 B/P (MAP) 130/71 (90) 124/56 (78) 148/69 (95) Pulse Ox 96 97 95 O2 Delivery Room Air Room Air Nasal Cannula Room Air O2 Flow Rate 2.0 03/07/20 03/08/20 03/08/20 23:00 03:00 07:15 Temp 98.8 99.0 97.3 98.8 99.0 97.3 Pulse 70 78 71 Resp 17 16 18 B/P (MAP) 124/66 (85) 132/58 (82) 139/71 (93) Pulse Ox 94 95 96 O2 Delivery Nasal Cannula Nasal Cannula Room Air O2 Flow Rate 2.0 2.0 Intake and Output 03/07/20 03/07/20 03/08/20 15:00 23:00 07:00 Intake Total 0 ml 250 ml Output Total 200 ml Balance -200 ml 250 ml Justicifation of Admission Dx: Justifications for Admission: Justification of Admission Dx: Yes STEPHANIE MOURA MD Mar 08, 2020 08:51
--- NOTE | 2020-03-08 09:20 | PDOC ---
SURGICAL PROGRESS NOTE DATE: 03/08/20 TIME: 09:17 Subjective up in chair no flatus yet ng bothersome Vital Signs Vital Signs Date Time Temp Pulse Resp B/P (MAP) Pulse Ox O2 Delivery O2 Flow Rate FiO2 03/08/20 07:15 97.3 71 18 139/71 (93) 96 Room Air 97.3 03/08/20 03:00 2.0 I&O Intake and Output 03/08/20 06:59 Intake Total 250 ml Output Total 200 ml Balance 50 ml Intake Oral 250 ml Output Urine Total 200 ml General: Alert, Oriented X3, Cooperative HEENT: Other (NG in place) Abdomen: Soft, Other (incision c/d/i, no erythema, zeeshan in place) Labs Laboratory Tests Test 03/07/20 03:45 White Blood Count 15.1 x10^3/uL (4.0-11.0) Red Blood Count 4.22 x10^6/uL (3.50-5.40) Hemoglobin 12.7 g/dL (12.0-15.5) Hematocrit 37.6 % (36.0-47.0) Mean Corpuscular Volume 89 fL (79-100) Mean Corpuscular Hemoglobin 30 pg (25-35) Mean Corpuscular Hemoglobin Concent 34 g/dL (31-37) Red Cell Distribution Width 13.8 % (11.5-14.5) Platelet Count 264 x10^3/uL (140-400) Neutrophils (%) (Auto) 86 % (31-73) Lymphocytes (%) (Auto) 4 % (24-48) Monocytes (%) (Auto) 10 % (0-9) Eosinophils (%) (Auto) 0 % (0-3) Basophils (%) (Auto) 0 % (0-3) Neutrophils # (Auto) 13.0 x10^3/uL (1.8-7.7) Lymphocytes # (Auto) 0.6 x10^3/uL (1.0-4.8) Monocytes # (Auto) 1.5 x10^3/uL (0.0-1.1) Eosinophils # (Auto) 0.0 x10^3/uL (0.0-0.7) Basophils # (Auto) 0.0 x10^3/uL (0.0-0.2) Segmented Neutrophils % 70 % (35-66) Band Neutrophils % 17 % (0-9) Lymphocytes % 5 % (24-48) Atypical Lymphocytes % (Manual) 1 % (0-0) Monocytes % 7 % (0-10) Platelet Estimate Adequate (ADEQUATE) Sodium Level 140 mmol/L (136-145) Potassium Level 4.0 mmol/L (3.5-5.1) Chloride Level 106 mmol/L (98-107) Carbon Dioxide Level 23 mmol/L (21-32) Anion Gap 11 (6-14) Blood Urea Nitrogen 16 mg/dL (7-20) Creatinine 0.9 mg/dL (0.6-1.0) Estimated GFR (Cockcroft-Gault) 73.3 Glucose Level 115 mg/dL (70-99) Calcium Level 9.0 mg/dL (8.5-10.1) Assessment/Plan POD#2 L colon resection dc NG, await bowel function Justicifation of Admission Dx: Justifications for Admission: Justification of Admission Dx: Yes TONYA VANN DEMURRAGE CLERK Mar 08, 2020 09:20
--- NOTE | 2020-03-08 10:00 | NUR ---
SW following. Discussed with RN, pt on a PERSONNEL ANALYST, awaiting bowel function. PT recommending home at discharge. RN advised no SW needs at this time. SW will continue to follow, should any discharge needs arise.
[2020-03-08] MEDS: ENOXAPARIN 40 MG/0.4 ML SYRINGE. SQ SCH (10:31)
[2020-03-08 11:02] VITALS: BP 134/72
[2020-03-08] MEDS: IV NORMAL SALINE 1000ML BAG 1,000 ML IV SCH (12:48)
[2020-03-08 15:06] VITALS: BP 117/64
--- NOTE | 2020-03-08 15:07 | PATHOLOGY ---
[facility] Accession Number: [id number] . 01 Material submitted: . PART A: colon - DESCENDING COLON. Modifiers: descending PART B: small bowel - SMALL BOWEL SEGMENT PART C: gastrointestinal site - OMENTUM . 01 Clinical history: . A. COLON CANCER, LEFT COLON RESECTION B,C. COLON CANCER, COLON RESECTION . 02 Frozen section diagnosis: . INTRAOPERATIVE CONSULTATION WITH GROSS IMPRESSION: (Jesús Sullivan M.D.) . Segment of colon with attached mesocolic and pericolic tissue, descending colon resection: - Ulcerated carcinoma of colon - margins of resection grossly free of neoplasm. . The results are displayed to Dr. Hinds in the operating room. . Intraoperative consultation performed at [facility], [address] [place] [address], [place] [address]. . GROSS DESCRIPTION: The specimen is received fresh for intraoperative consultation and is designated "descending colon". This consists of a segment of colon with attached yellow-red mesocolic and pericolic tissue. This segment measures 15 cm in length. The attached mesocolon measures up to 5 cm in depth. The attached pericolic fatty tissue measures up to 8.0 x 9.5 cm. The segment is stapled closed at both ends. There is an area of tattooing adjacent to one of the stapled margins. This is the distal margin. There is another area of tattooing within the midportion of the specimen. The segment is opened along the antimesocolon. Arising approximately 3.0 cm from the distal margin, there is a rounded, centrally ulcerated, red-hollins tumor mass measuring up to 2.5 cm in diameter. The mass is firmly attached to the muscular wall. The remainder of the mucosa is pink-hollins to transversely folded. There are no additional polyps or tumor masses. There are several detached segments of yellow-red, fatty tissue within the specimen container, ranging from 2.2 cm up to 7.5 x 4.4 cm. (JPM/db/jennyfer; 03/08/2020) FREEMAN/TRISH . 02 Diagnosis: A. Segment of colon with attached mesocolon and pericolic tissue, splenic flexure and descending colon resection: - Invasive colorectal adenocarcinoma, moderately-well differentiated, forming a centrally ulcerated rounded tumor mass measuring 2.5 cm in greatest dimension, with tumor invasion of muscularis propria and focal tumor extension through muscular propria into mesocolic tissue. - Ten mesocolic lymph nodes negative for tumor (0/10). - Proximal, distal, and radial mesocolic margins of resection negative for tumor. - Serosal fibrosis/adhesions and chronic inflammation, focal. . B. Small bowel, segmental resection: - Serosal fibrosis/adhesions. - Sutured enterotomy defect. . C. Segments of omentum: - Serosal fibrosis/adhesions and focal recent hemorrhage - negative for malignancy. (JPM:jennyfer; 03/08/2020) . . Surgical Pathology Cancer Case Summary . Protocol posting date: August 2019 . COLON AND RECTUM: Resection, Including Transanal Disk Excision of Rectal Neoplasms . Procedure ___ Other (specify): Splenic flexure and descending colon resection . Tumor Site ___ Descending colon . Tumor Size Greatest dimension (centimeters): 2.5 cm . Macroscopic Tumor Perforation ___ Not identified . Histologic Type ___ Adenocarcinoma . Histologic Grade ___ G2: Moderately differentiated . Tumor Extension ___ Tumor invades through the muscularis propria into pericolorectal tissue . Margins ___ All margins are uninvolved by invasive carcinoma, high grade dysplasia / intramucosal adenocarcinoma, and adenoma Margins examined: Proximal, distal, radial mesocolic margins. + Distance of invasive carcinoma from closest margin (millimeters or centimeters): 3.0 cm + Closest margin: Distal. . Treatment effect ___ No known presurgical therapy . Lymphovascular Invasion ___ Not identified . Perineural Invasion ___ Not identified . Type of Polyp in Which Invasive Carcinoma Arose ___ Tubular adenoma . Tumor Deposits ___ Not identified . Regional Lymph Nodes . Number of Lymph Nodes Involved: 0 Number of Lymph Nodes Examined: 10 . Pathologic Stage Classification (pTNM, AJCC 8th Edition) . Primary Tumor (pT) ___ pT3: Tumor invades through the muscularis propria into pericolorectal tissues . Regional Lymph Nodes (pN) ___ pN0: No regional lymph node metastasis . Additional Pathologic Findings ___ None identified . (JPM:jennyfer 03/08/2020) QMS 03/08/2020 1441 Local . 02 Electronically signed: . Juan Sullivan MD, Pathologist NPI- [id number] . 01 Gross description: . SEE INTRAOPERATIVE CONSULTATION GROSS DESCRIPTION. . A. The serosa corresponding to the mass is inked black. Sectioning through the mass reveals obliteration of muscular wall with focal possible invasion into the pericolic tissue. The pericolic tissue is placed in clearing solution revealing 8 lymph node candidates. Lining Cementer sections are submitted as follows: . A1: Distal margin A2: Proximal margin A3: Possible tumor invasion into the pericolic tissue A4-A5: Mass to free serosa A6: Mass to distal A7: Mass to proximal A8: One bisected lymph node A9: 3 intact lymph node candidates A10: 3 intact lymph node candidates A11: One bisected lymph node A12-A15: Lymphovascular bundles . B. The specimen is received in formalin, labeled "Fernandes, Klaudia, small bowel segment" and consists of a segment of small bowel measuring 5.0 cm in length and up to 1.9 cm in diameter with attached mesocolic fat measuring up to 2.4 cm. A blue stitch is present in the middle segment in the area of roughened raised serosa (inked black). Both margins are closed with a line of pedro. Opening reveals a possible transmural defect in the area of the blue stitch. Lining Cementer sections are submitted as follows: . B1-B2: Margins B3-B4: Possible defect . C. The specimen is received in formalin, labeled "Fernandes, Klaudia, omentum" and consists of 2 segments of omentum measuring 13.0 x 11.3 x 3.3 cm. Sectioning reveals focal congestion and no masses or lesions. Lining Cementer sections are submitted in C1. (SDY; 03/07/2020) SYU/LBQ 03/08/2020 1242 Local . 02 Pathologist provided ICD-10: C18.6, K66.0 . 02 CPT . 544083, 603725, [id number], [id number] Specimen Comment: A courtesy copy of this report has been sent to [phone], [phone] Specimen Comment: [id number] Specimen Comment: Report sent to / DR SALCEDO Performed at: [address], [place] [id number] MD Trev Selby MD Phone: [phone] Performed at: 02 [facility] [address] [place], [place] [id number] MD Juan Sullivan MD Phone: [phone]
[2020-03-08] MEDS: HYDROmorphone 12mg/30ml PCA 30 ML IV PRN (17:05)
[2020-03-08 19:00] VITALS: BP 129/74
[2020-03-08 23:00] VITALS: BP 142/77
[2020-03-09] VITALS (7 sets, daily range): BP systolic 136–184; BP diastolic 55–92
[2020-03-09] MEDS: IV 1/2 NORMAL SALINE 1,000 ML IV SCH ×2 (02:11→13:42)
--- NOTE | 2020-03-09 08:35 | PDOC ---
PROGRESS NOTES Date of Service: DATE: 03/09/20 TIME: 08:32 Subjective Subjective feels ok,not passing gas yet Objective Objective Vital Signs Date Time Temp Pulse Resp B/P (MAP) Pulse Ox O2 Delivery O2 Flow Rate FiO2 03/09/20 07:15 98.5 69 16 136/70 (92) 95 Room Air 98.5 Intake and Output 03/09/20 07:00 Intake Total 150 ml Output Total 460 ml Balance -310 ml Intake Oral 150 ml Output Urine Total 460 ml # Voids 2 Physical Exam Abdomen: Soft, Other (incision c/d/i, no erythema, zeeshan in place) Heart: Regular rate Extremities: No clubbing General: Alert, Oriented X3, Cooperative HEENT: Other (NG in place) Lungs: Clear to auscultation MUSCULOSKELETAL: No deformity Neck: Supple Neuro: Normal speech Psych/Mental Status: Mental status NL Skin: No breakdown Assessment Assessment FINAL IMPRESSION: 1. The patient had a left colectomy for colon cancer. 2. History of hypertension, stable. 3. History of previous borderline diabetes, stable. 4. History of hypertension and hyperlipidemia. PLAN: POD#3. iv fluids, ice chips dvt prevention, on lovenox wbc 15 reactive incentive spiromtry. stable post op course labs for today pending ambulate in hallway At this time, we will follow with Dr. Hinds. Continue incentive spirometry, DVT prevention, PT/OT and see how she improves. Her white count is slightly elevated, probably reactive from surgery; we will follow it closely. Comment Review of Relevant I have reviewed the following items gissell (where applicable) has been applied. Vitals/I & O Vital Sign - Last 24 Hours 03/08/20 03/08/20 03/08/20 03/08/20 11:02 15:06 17:05 19:00 Temp 98.2 98.9 98.3 98.2 98.9 98.3 Pulse 72 70 82 Resp 18 18 16 17 B/P (MAP) 134/72 (92) 117/64 (81) 129/74 (92) Pulse Ox 95 96 95 O2 Delivery Room Air Room Air Room Air Room Air 03/08/20 03/08/20 03/08/20 03/09/20 20:00 21:30 23:00 03:00 Temp 99.1 98.5 99.1 98.5 Pulse 74 74 Resp 14 17 20 B/P (MAP) 142/77 (98) 141/77 (98) Pulse Ox 94 100 O2 Delivery Room Air Room Air Room Air Room Air 03/09/20 07:15 Temp 98.5 98.5 Pulse 69 Resp 16 B/P (MAP) 136/70 (92) Pulse Ox 95 O2 Delivery Room Air Intake and Output 03/08/20 03/08/20 03/09/20 15:00 23:00 07:00 Intake Total 0 ml 150 ml Output Total 210 ml 250 ml Balance -210 ml -100 ml Justicifation of Admission Dx: Justifications for Admission: Justification of Admission Dx: Yes STEPHANIE MOURA MD Mar 09, 2020 08:35
[2020-03-09] MEDS: ENOXAPARIN 40 MG/0.4 ML SYRINGE. SQ SCH (09:30)
--- NOTE | 2020-03-09 09:47 | NUR ---
SW following. Discussed with RN, pt from home alone, room air, awaiting bowel function. PT recommending home. SW will continue to follow.
[2020-03-09 10:07] LABS: BASO % 1 % (0-3); EOS % 1 % (0-3); HEMATOCRIT 36.2 % (36.0-47.0); HEMOGLOBIN 12.3 g/dL (12.0-15.5); LYMPH # 0.9 x10^3/uL (1.0-4.8); LYMPH % 10 % (24-48); MEAN CORPUSCULAR HEMOGLOBIN 31 pg (25-35); MEAN CORPUSCULAR HGB CONC 34 g/dL (31-37); MEAN CORPUSCULAR VOLUME 90 fL (79-100); MONO # 0.8 x10^3/uL (0.0-1.1); MONO % 9 % (0-9); NEUT # 7.4 x10^3/uL (1.8-7.7); NEUT % 81 % (31-73); PLATELET COUNT 228 x10^3/uL (140-400); RED BLOOD COUNT 4.01 x10^6/uL (3.50-5.40); RED CELL DISTRIBUTION WIDTH 13.4 % (11.5-14.5); WHITE BLOOD COUNT 9.2 x10^3/uL (4.0-11.0)
[2020-03-09 10:16] LABS: ALBUMIN 2.6 g/dL (3.4-5.0); ALBUMIN/GLOBULIN RATIO 0.7 (1.0-1.7); CALCIUM 8.3 mg/dL (8.5-10.1); CREATININE 0.9 mg/dL (0.6-1.0); GFR 73.3; POTASSIUM 3.6 mmol/L (3.5-5.1); TOTAL BILIRUBIN 1.2 mg/dL (0.2-1.0); TOTAL PROTEIN 6.4 g/dL (6.4-8.2)
--- NOTE | 2020-03-09 12:31 | PDOC ---
SURGICAL PROGRESS NOTE DATE: 03/09/20 TIME: 12:30 Subjective no n/v pain managed no flatus Vital Signs Vital Signs Date Time Temp Pulse Resp B/P (MAP) Pulse Ox O2 Delivery O2 Flow Rate FiO2 03/09/20 11:15 98.9 78 16 149/81 (103) 98 Room Air 98.9 I&O Intake and Output 03/09/20 06:59 Intake Total 150 ml Output Total 460 ml Balance -310 ml Intake Oral 150 ml Output Urine Total 460 ml # Voids 2 General: Alert, Oriented X3, Cooperative Abdomen: Soft, Other (Nd, incision c/d/i, no erythema ) Labs Laboratory Tests Test 03/09/20 09:35 White Blood Count 9.2 x10^3/uL (4.0-11.0) Red Blood Count 4.01 x10^6/uL (3.50-5.40) Hemoglobin 12.3 g/dL (12.0-15.5) Hematocrit 36.2 % (36.0-47.0) Mean Corpuscular Volume 90 fL (79-100) Mean Corpuscular Hemoglobin 31 pg (25-35) Mean Corpuscular Hemoglobin Concent 34 g/dL (31-37) Red Cell Distribution Width 13.4 % (11.5-14.5) Platelet Count 228 x10^3/uL (140-400) Neutrophils (%) (Auto) 81 % (31-73) Lymphocytes (%) (Auto) 10 % (24-48) Monocytes (%) (Auto) 9 % (0-9) Eosinophils (%) (Auto) 1 % (0-3) Basophils (%) (Auto) 1 % (0-3) Neutrophils # (Auto) 7.4 x10^3/uL (1.8-7.7) Lymphocytes # (Auto) 0.9 x10^3/uL (1.0-4.8) Monocytes # (Auto) 0.8 x10^3/uL (0.0-1.1) Eosinophils # (Auto) 0.0 x10^3/uL (0.0-0.7) Basophils # (Auto) 0.0 x10^3/uL (0.0-0.2) Sodium Level 137 mmol/L (136-145) Potassium Level 3.6 mmol/L (3.5-5.1) Chloride Level 103 mmol/L (98-107) Carbon Dioxide Level 25 mmol/L (21-32) Anion Gap 9 (6-14) Blood Urea Nitrogen 12 mg/dL (7-20) Creatinine 0.9 mg/dL (0.6-1.0) Estimated GFR (Cockcroft-Gault) 73.3 BUN/Creatinine Ratio 13 (6-20) Glucose Level 69 mg/dL (70-99) Calcium Level 8.3 mg/dL (8.5-10.1) Total Bilirubin 1.2 mg/dL (0.2-1.0) Aspartate Amino Transf (AST/SGOT) 20 U/L (15-37) Alanine Aminotransferase (ALT/SGPT) 21 U/L (14-59) Alkaline Phosphatase 52 U/L (46-116) Total Protein 6.4 g/dL (6.4-8.2) Albumin 2.6 g/dL (3.4-5.0) Albumin/Globulin Ratio 0.7 (1.0-1.7) Laboratory Tests Test 03/09/20 09:35 White Blood Count 9.2 x10^3/uL (4.0-11.0) Red Blood Count 4.01 x10^6/uL (3.50-5.40) Hemoglobin 12.3 g/dL (12.0-15.5) Hematocrit 36.2 % (36.0-47.0) Mean Corpuscular Volume 90 fL (79-100) Mean Corpuscular Hemoglobin 31 pg (25-35) Mean Corpuscular Hemoglobin Concent 34 g/dL (31-37) Red Cell Distribution Width 13.4 % (11.5-14.5) Platelet Count 228 x10^3/uL (140-400) Neutrophils (%) (Auto) 81 % (31-73) Lymphocytes (%) (Auto) 10 % (24-48) Monocytes (%) (Auto) 9 % (0-9) Eosinophils (%) (Auto) 1 % (0-3) Basophils (%) (Auto) 1 % (0-3) Neutrophils # (Auto) 7.4 x10^3/uL (1.8-7.7) Lymphocytes # (Auto) 0.9 x10^3/uL (1.0-4.8) Monocytes # (Auto) 0.8 x10^3/uL (0.0-1.1) Eosinophils # (Auto) 0.0 x10^3/uL (0.0-0.7) Basophils # (Auto) 0.0 x10^3/uL (0.0-0.2) Sodium Level 137 mmol/L (136-145) Potassium Level 3.6 mmol/L (3.5-5.1) Chloride Level 103 mmol/L (98-107) Carbon Dioxide Level 25 mmol/L (21-32) Anion Gap 9 (6-14) Blood Urea Nitrogen 12 mg/dL (7-20) Creatinine 0.9 mg/dL (0.6-1.0) Estimated GFR (Cockcroft-Gault) 73.3 BUN/Creatinine Ratio 13 (6-20) Glucose Level 69 mg/dL (70-99) Calcium Level 8.3 mg/dL (8.5-10.1) Total Bilirubin 1.2 mg/dL (0.2-1.0) Aspartate Amino Transf (AST/SGOT) 20 U/L (15-37) Alanine Aminotransferase (ALT/SGPT) 21 U/L (14-59) Alkaline Phosphatase 52 U/L (46-116) Total Protein 6.4 g/dL (6.4-8.2) Albumin 2.6 g/dL (3.4-5.0) Albumin/Globulin Ratio 0.7 (1.0-1.7) Assessment/Plan await bowel function continue ambulating Justicifation of Admission Dx: Justifications for Admission: Justification of Admission Dx: Yes TONYA VANN DATA TRANSCRIBER Mar 09, 2020 12:31
[2020-03-09] MEDS: IV NORMAL SALINE 1000ML BAG 1,000 ML IV SCH (12:48)
[2020-03-10 03:48] VITALS: BP 149/67
[2020-03-10] MEDS: IV 1/2 NORMAL SALINE 1,000 ML IV SCH ×3 (06:50→18:00)
[2020-03-10 07:00] VITALS: BP 162/87
[2020-03-10 11:00] VITALS: BP 169/64
--- NOTE | 2020-03-10 11:40 | PDOC ---
PROGRESS NOTES Date of Service: DATE: 03/10/20 TIME: 11:39 Subjective Subjective not passing gas yet Objective Objective Vital Signs Date Time Temp Pulse Resp B/P (MAP) Pulse Ox O2 Delivery O2 Flow Rate FiO2 03/10/20 07:00 97.4 77 16 162/87 (112) 98 Room Air 97.4 Intake and Output 03/10/20 07:00 Intake Total 500 ml Output Total 450 ml Balance 50 ml Intake Oral 500 ml Output Urine Total 450 ml # Voids 5 Physical Exam Abdomen: Soft, Other (Nd, incision c/d/i, no erythema ) Heart: Regular rate Extremities: No clubbing General: Alert, Oriented X3, Cooperative HEENT: Other (NG in place) Lungs: Clear to auscultation MUSCULOSKELETAL: No deformity Neck: Supple Neuro: Normal speech Psych/Mental Status: Mental status NL Skin: No breakdown Assessment Assessment FINAL IMPRESSION: 1. The patient had a left colectomy for colon cancer. 2. History of hypertension, stable. 3. History of previous borderline diabetes, stable. 4. History of hypertension and hyperlipidemia. PLAN: POD#4. iv fluids, ice chips dvt prevention, on lovenox wbc 15 reactive, down to 10 incentive spiromtry. stable post op course waiting for pt to pass gas ambulate in hallway At this time, we will follow with Dr. Hinds. Continue incentive spirometry, DVT prevention, PT/OT and see how she improves. Her white count is slightly elevated, probably reactive from surgery; we will follow it closely. Comment Review of Relevant I have reviewed the following items gissell (where applicable) has been applied. Vitals/I & O Vital Sign - Last 24 Hours 03/09/20 03/09/20 03/09/20 03/09/20 15:15 19:45 19:59 23:15 Temp 97.9 97.5 97.9 97.9 97.5 97.9 Pulse 70 74 76 Resp 18 16 16 B/P (MAP) 136/64 (88) 163/55 (91) 184/85 (118) Pulse Ox 98 97 95 O2 Delivery Room Air Room Air Room Air Room Air 03/09/20 03/10/20 03/10/20 23:51 03:48 07:00 Temp 98.5 97.4 98.5 97.4 Pulse 61 73 77 Resp 16 16 B/P (MAP) 137/67 (90) 149/67 (94) 162/87 (112) Pulse Ox 98 98 O2 Delivery Room Air Room Air Intake and Output 03/09/20 03/09/20 03/10/20 15:00 23:00 07:00 Intake Total 500 ml Output Total 250 ml 200 ml Balance -250 ml 300 ml Justicifation of Admission Dx: Justifications for Admission: Justification of Admission Dx: Yes STEPHANIE MOURA MD Mar 10, 2020 11:40
[2020-03-10] MEDS: ENOXAPARIN 40 MG/0.4 ML SYRINGE. SQ SCH (12:26)
[2020-03-10] MEDS: IV NORMAL SALINE 1000ML BAG 1,000 ML IV SCH (12:48)
--- NOTE | 2020-03-10 12:50 | PDOC ---
SURGICAL PROGRESS NOTE DATE: 03/10/20 TIME: 12:49 Subjective feeling well some flatus pain managed Vital Signs Vital Signs Date Time Temp Pulse Resp B/P (MAP) Pulse Ox O2 Delivery O2 Flow Rate FiO2 03/10/20 07:00 97.4 77 16 162/87 (112) 98 Room Air 97.4 I&O Intake and Output 03/10/20 07:00 Intake Total 500 ml Output Total 450 ml Balance 50 ml Intake Oral 500 ml Output Urine Total 450 ml # Voids 5 General: Alert, Oriented X3, Cooperative Abdomen: Soft, No tenderness Labs Laboratory Tests Test 03/09/20 09:35 White Blood Count 9.2 x10^3/uL (4.0-11.0) Red Blood Count 4.01 x10^6/uL (3.50-5.40) Hemoglobin 12.3 g/dL (12.0-15.5) Hematocrit 36.2 % (36.0-47.0) Mean Corpuscular Volume 90 fL (79-100) Mean Corpuscular Hemoglobin 31 pg (25-35) Mean Corpuscular Hemoglobin Concent 34 g/dL (31-37) Red Cell Distribution Width 13.4 % (11.5-14.5) Platelet Count 228 x10^3/uL (140-400) Neutrophils (%) (Auto) 81 % (31-73) Lymphocytes (%) (Auto) 10 % (24-48) Monocytes (%) (Auto) 9 % (0-9) Eosinophils (%) (Auto) 1 % (0-3) Basophils (%) (Auto) 1 % (0-3) Neutrophils # (Auto) 7.4 x10^3/uL (1.8-7.7) Lymphocytes # (Auto) 0.9 x10^3/uL (1.0-4.8) Monocytes # (Auto) 0.8 x10^3/uL (0.0-1.1) Eosinophils # (Auto) 0.0 x10^3/uL (0.0-0.7) Basophils # (Auto) 0.0 x10^3/uL (0.0-0.2) Sodium Level 137 mmol/L (136-145) Potassium Level 3.6 mmol/L (3.5-5.1) Chloride Level 103 mmol/L (98-107) Carbon Dioxide Level 25 mmol/L (21-32) Anion Gap 9 (6-14) Blood Urea Nitrogen 12 mg/dL (7-20) Creatinine 0.9 mg/dL (0.6-1.0) Estimated GFR (Cockcroft-Gault) 73.3 BUN/Creatinine Ratio 13 (6-20) Glucose Level 69 mg/dL (70-99) Calcium Level 8.3 mg/dL (8.5-10.1) Total Bilirubin 1.2 mg/dL (0.2-1.0) Aspartate Amino Transf (AST/SGOT) 20 U/L (15-37) Alanine Aminotransferase (ALT/SGPT) 21 U/L (14-59) Alkaline Phosphatase 52 U/L (46-116) Total Protein 6.4 g/dL (6.4-8.2) Albumin 2.6 g/dL (3.4-5.0) Albumin/Globulin Ratio 0.7 (1.0-1.7) Problem List start clears Justicifation of Admission Dx: Justifications for Admission: Justification of Admission Dx: Yes TONYA VANN FARROWING WORKER Mar 10, 2020 12:50
[2020-03-10 15:00] VITALS: BP 103/39
[2020-03-10 19:00] VITALS: BP 159/56
[2020-03-10 23:01] VITALS: BP 192/78
[2020-03-11 03:06] VITALS: BP 156/72
[2020-03-11 07:00] VITALS: BP 135/81
--- NOTE | 2020-03-11 08:27 | PDOC ---
SURGICAL PROGRESS NOTE DATE: 03/11/20 TIME: 08:26 Subjective + stool wants to go home tolerating clears no pain Vital Signs Vital Signs Date Time Temp Pulse Resp B/P (MAP) Pulse Ox O2 Delivery O2 Flow Rate FiO2 03/11/20 03:06 98.1 76 20 156/72 (100) 98 Room Air 98.1 I&O Intake and Output 03/11/20 07:00 Output Total 550 ml Balance -550 ml Output Urine Total 550 ml # Voids 3 # Bowel Movements 2 General: Alert, Oriented X3, Cooperative Abdomen: Soft, No tenderness, Other (incision c/d/i, no erythema ) Labs Laboratory Tests Test 03/09/20 09:35 White Blood Count 9.2 x10^3/uL (4.0-11.0) Red Blood Count 4.01 x10^6/uL (3.50-5.40) Hemoglobin 12.3 g/dL (12.0-15.5) Hematocrit 36.2 % (36.0-47.0) Mean Corpuscular Volume 90 fL (79-100) Mean Corpuscular Hemoglobin 31 pg (25-35) Mean Corpuscular Hemoglobin Concent 34 g/dL (31-37) Red Cell Distribution Width 13.4 % (11.5-14.5) Platelet Count 228 x10^3/uL (140-400) Neutrophils (%) (Auto) 81 % (31-73) Lymphocytes (%) (Auto) 10 % (24-48) Monocytes (%) (Auto) 9 % (0-9) Eosinophils (%) (Auto) 1 % (0-3) Basophils (%) (Auto) 1 % (0-3) Neutrophils # (Auto) 7.4 x10^3/uL (1.8-7.7) Lymphocytes # (Auto) 0.9 x10^3/uL (1.0-4.8) Monocytes # (Auto) 0.8 x10^3/uL (0.0-1.1) Eosinophils # (Auto) 0.0 x10^3/uL (0.0-0.7) Basophils # (Auto) 0.0 x10^3/uL (0.0-0.2) Sodium Level 137 mmol/L (136-145) Potassium Level 3.6 mmol/L (3.5-5.1) Chloride Level 103 mmol/L (98-107) Carbon Dioxide Level 25 mmol/L (21-32) Anion Gap 9 (6-14) Blood Urea Nitrogen 12 mg/dL (7-20) Creatinine 0.9 mg/dL (0.6-1.0) Estimated GFR (Cockcroft-Gault) 73.3 BUN/Creatinine Ratio 13 (6-20) Glucose Level 69 mg/dL (70-99) Calcium Level 8.3 mg/dL (8.5-10.1) Total Bilirubin 1.2 mg/dL (0.2-1.0) Aspartate Amino Transf (AST/SGOT) 20 U/L (15-37) Alanine Aminotransferase (ALT/SGPT) 21 U/L (14-59) Alkaline Phosphatase 52 U/L (46-116) Total Protein 6.4 g/dL (6.4-8.2) Albumin 2.6 g/dL (3.4-5.0) Albumin/Globulin Ratio 0.7 (1.0-1.7) Problem List advance diet possible home later today if doing well Justicifation of Admission Dx: Justifications for Admission: Justification of Admission Dx: Yes TONYA VANN MISSILE CONTROL PILOT Mar 11, 2020 08:27
[2020-03-11] MEDS ORDERED: HYDROcodone/APAP 5/325MG 1 TAB TABLET PO PRN (08:30)
[2020-03-11] MEDS ORDERED: HYDR-3164 PO (08:30)
--- NOTE | 2020-03-11 08:32 | DISCH ---
DISCHARGE INSTRUCTIONS Condition on Discharge Condition on Discharge: Stable Activity After Discharge Activity Instructions for Disc: Activity as tolerated, Progressive ambulation, Walk in house Other activity instructions: ok to shower Bathing Instructions: No Tub Bath until see Lifting Instructions after Dis: No heavy lifting Exercise Instruction after Dis: Walk 10 min, 3 x per day, Walk 15 min, 3 x per day, Progress as tolerated Driving Instructions after Dis: Do not drive Weight Bearing Status after Di: Full weight bearing, As tolerated Diet after Discharge Diet after Discharge: Regular Diet Texture: Regular Liquid Texture: Thin Liquid Swallowing Supervision: None needed Wound Incision Care Wound/Incision Care: Change dressing (as needed ) Wound Care Equipment: Dressings Contacting the after DC Call your doctor for: Concerns you may have Follow-Up Follow up with: Dr Hinds 2 weeks, call to schedule [phone] Treatment/Equipment after DC Adaptive Equipment Issued: None TONYA VANN APRN Mar 11, 2020 08:31
[2020-03-11] MEDS: ENOXAPARIN 40 MG/0.4 ML SYRINGE. SQ SCH (08:52)
--- NOTE | 2020-03-11 10:17 | PDOC ---
PROGRESS NOTES Date of Service: DATE: 03/11/20 TIME: 10:15 Subjective Subjective none, tolerating diet Objective Objective Vital Signs Date Time Temp Pulse Resp B/P (MAP) Pulse Ox O2 Delivery O2 Flow Rate FiO2 03/11/20 07:00 98.0 72 20 135/81 (99) 99 Room Air 98.0 Intake and Output 03/11/20 07:00 Output Total 550 ml Balance -550 ml Output Urine Total 550 ml # Voids 3 # Bowel Movements 2 Physical Exam Abdomen: Soft, No tenderness, Other (incision c/d/i, no erythema ) Heart: Regular rate Extremities: No clubbing General: Alert, Oriented X3, Cooperative HEENT: Other (NG in place) Lungs: Clear to auscultation MUSCULOSKELETAL: No deformity Neck: Supple Neuro: Normal speech Psych/Mental Status: Mental status NL Skin: No breakdown Assessment Assessment FINAL IMPRESSION: 1. The patient had a left colectomy for colon cancer. 2. History of hypertension, stable. 3. History of previous borderline diabetes, stable. 4. History of hypertension and hyperlipidemia. PLAN: POD#5. tolerating diet , advanced to gi soft diet dvt prevention, on lovenox wbc 15 reactive, down to 10 incentive spiromtry. stable post op course discharge soon today / tomorrow Comment Review of Relevant I have reviewed the following items gissell (where applicable) has been applied. Medications Current Medications Acetaminophen/ Hydrocodone Bitart (Lortab 5/325) 1 tab PRN Q4HRS PRN PO PAIN; Start 03/11/20 at 08:30 Vitals/I & O Vital Sign - Last 24 Hours 03/10/20 03/10/20 03/10/20 03/10/20 11:00 15:00 19:00 19:50 Temp 98.9 97.7 99.3 98.9 97.7 99.3 Pulse 68 67 72 Resp 16 16 18 B/P (MAP) 169/64 (99) 103/39 (60) 159/56 (90) Pulse Ox 97 97 100 O2 Delivery Room Air Room Air Room Air Room Air 03/10/20 03/11/20 03/11/20 23:01 03:06 07:00 Temp 98.9 98.1 98.0 98.9 98.1 98.0 Pulse 70 76 72 Resp 19 20 20 B/P (MAP) 192/78 (116) 156/72 (100) 135/81 (99) Pulse Ox 99 98 99 O2 Delivery Room Air Room Air Room Air Intake and Output 03/10/20 03/10/20 03/11/20 15:00 23:00 07:00 Output Total 550 ml Balance -550 ml Justicifation of Admission Dx: Justifications for Admission: Justification of Admission Dx: Yes STEPHANIE MOURA MD Mar 11, 2020 10:17
[2020-03-11 11:00] VITALS: BP 165/79
[2020-03-11 15:00] VITALS: BP 167/86
--- NOTE | 2020-03-11 16:40 | NUR ---
Discharge teaching completed. Janeth PAYNE did abdominal dressing change and taught pt to do dressing changes. Dressings sent with patient. Pt states she understands her discharge teaching and follow up instructions. IV site discontinued without difficulty. Pt discharged to home with a friend. She was escorted out via w/c by staff.
== END 2020-03-11 17:14 | disposition home or self-care (01) | DRG 331 ==
LOC: OPSVCIP 05:50 → 4 NORTH 14:20
PROVIDERS: ADMIT Surgery; ATTEND Surgery
PROC: 0DB80ZZ Excision of Small Intestine, Open Approach (ICD-10-PCS; 2020-03-06)
PROC: 0DBU0ZZ Excision of Omentum, Open Approach (ICD-10-PCS; 2020-03-06)
PROC: 0DJD4ZZ Inspection of Lower Intestinal Tract, Percutaneous Endoscopic Approach (ICD-10-PCS; 2020-03-06)
PROC: 0DTG0ZZ Resection of Left Large Intestine, Open Approach (ICD-10-PCS; principal; 2020-03-06 07:30)
DX: C18.6 Malignant neoplasm of descending colon (principal); E11.22 Type 2 diabetes mellitus with diabetic chronic kidney disease; E78.5 Hyperlipidemia, unspecified; I12.9 Hypertensive chronic kidney disease with stage 1 through stage 4 chronic kidney disease, or unspecified chronic kidney disease; K66.0 Peritoneal adhesions (postprocedural) (postinfection); M85.80 Other specified disorders of bone density and structure, unspecified site; N18.9 Chronic kidney disease, unspecified; Z53.31 Laparoscopic surgical procedure converted to open procedure; Z80.6 Family history of leukemia; Z80.7 Family history of other malignant neoplasms of lymphoid, hematopoietic and related tissues; Z85.038 Personal history of other malignant neoplasm of large intestine; Z85.3 Personal history of malignant neoplasm of breast; Z90.710 Acquired absence of both cervix and uterus; Z79.899 Other long term (current) drug therapy; Z88.0 Allergy status to penicillin; Z88.8 Allergy status to other drugs, medicaments and biological substances
CPT/HCPCS: 36415; 80048; 80053; 85007; 85025; 88307; 88309; A7015; J0330; J1100; J1170; J1650; J1956; J2405; J2704; J2710; J3010; J3490; J7030; J7120; 97110-GP; 97116-GP; 97530-GP; G0378

== ENCOUNTER → 2021-01-28 | Outpatient (CLI) | payer MEDICARE ==
[~2021-01-28] MED LIST changes: +AMLO-186 PO; -AMLO5TAB10 PO; -CLINDAMYCIN 900MG PREMIX 50 ML IV ONE; +IOHEXOL 240 MG/ML 50ML VIAL. PO ONE; +IOHEXOL 300 MG/ML 100ML VIAL. IV ONE
--- NOTE | 2021-01-28 12:29 | RAD ---
EXAM: Nuclear bone scan. HISTORY: Breast cancer and rectal cancer. TECHNIQUE: Following the intravenous injection of 24.5 mCi of Tc 99m labeled methylene diphosphonate (MDP), whole body imaging was performed. COMPARISON: CT obtained on the same date. FINDINGS: There is no convincing radiotracer activity to suggest osseous metastatic disease. There is suspected degenerative radiotracer activity involving both shoulders, wrists and hands, knees, ankle s and feet. There is expected tracer activity within the renal collecting system. IMPRESSION: 1. No convincing scintigraphic evidence of osseous metastatic disease. 2. Radiotracer activity associated with suspected osteoarthritis involving the shoulders, wrists and hands, knees, ankles and feet. Electronically signed by: Marisol Collier MD (01/28/2021 12:27 PM) [id number]
--- NOTE | 2021-01-28 16:28 | RAD ---
EXAM: Chest, abdomen and pelvis CT with intravenous contrast. HISTORY: Left breast cancer restaging. TECHNIQUE: Computed tomographic images of the chest, abdomen and pelvis were obtained following the a dministration of intravenous contrast. Multiplanar reformatting was performed. *One or more of the following individualized dose reduction techniques were utilized for this examina tion: 1. Automated exposure control. 2. Adjustment of the mA and/or kV according to patient size. 3. Use of iterative reconstruction technique. COMPARISON: 01/10/2020. FINDINGS: Chest: There are left mastectomy changes. The heart is normal in size. The thoracic aorta i s normal in caliber. No pathologically enlarged mediastinal or hilar lymph node is seen. There are mu ltiple bilateral pulmonary nodules. The largest nodule on the right is seen within the middle lobe al mickie the minor fissure measuring 7 mm in the largest nodule on the left is seen within the lower lobe measuring 8 mm. The prior study. There is stable right lower lobe pleural parenchymal scarring superi mposed posterior dependent atelectasis. There is no pleural effusion or pneumothorax. There is no marci picious osseous lesion. There is a bone island within T6. Abdomen and pelvis: There are at least 7 hepatic metastases, the largest of which is seen within the right hepatic lobe measuring 3.3 cm. The gallbladder, pancreas, spleen and stomach are unremarkable. There are stable bilateral adrenal nodules. The interval stability favors benign adenomas rather than metastases. There are multiple simple appearing renal cysts, the largest of which is seen on the rig ht measuring 6.6 cm. There is no hydronephrosis. There is no appendicitis. There is no bowel obstruction. There is evidence of partial sigmoid resecti on. There is a small fat-containing ventral abdominal wall hernia measuring 3.6 cm. There is scarring within the ventral abdominal wall due to a prior laparotomy. The aorta is normal in caliber. No retr operitoneal or mesenteric lymphadenopathy is seen. There is no acute or suspicious osseous lesion. Th ere are few osseous hemangiomas. There is degenerative change involving the spine, primarily at the m id lower lumbar levels. IMPRESSION: 1. Multiple hepatic metastases, the largest of which measures 3.3 cm. These are new compared to the p rior study. 2. Multiple pulmonary nodules measuring up to 8 mm, new compared to the prior study and likely metast atic given the aforementioned findings. 3. Left mastectomy changes. 4. Bilateral adrenal nodules, the stability which favors adenomas rather than metastases. 5. Small fat-containing supraumbilical hernia and evidence of prior laparotomy and partial sigmoid re section. Electronically signed by: Marisol Collier MD (01/28/2021 4:26 PM) [id number]
== END ==
LOC: NM 08:17
PROVIDERS: ATTEND Internal Medicine Hematology & Oncology
DX: C78.7 Secondary malignant neoplasm of liver and intrahepatic bile duct (principal); C50.212 Malignant neoplasm of upper-inner quadrant of left female breast; R91.8 Other nonspecific abnormal finding of lung field; J98.11 Atelectasis; J98.4 Other disorders of lung; K42.9 Umbilical hernia without obstruction or gangrene; E27.8 Other specified disorders of adrenal gland; D18.09 Hemangioma of other sites; Z17.0 Estrogen receptor positive status [ER+]
CPT/HCPCS: 71260; 74177; 78306; A9503; Q9966; Q9967

== ENCOUNTER → 2021-04-29 | Outpatient (CLI) | payer MEDICARE ==
--- NOTE | 2021-04-29 11:55 | RAD ---
EXAM: CT Chest, Abdomen and Pelvis with IV contrast CLINICAL HISTORY: Reason: Restaging breast cancer COMPARISON: 01/28/2021 01/10/20 TECHNIQUE: Helical CT of the chest, abdomen and pelvis was performed following the administration of intravenous contrast. Axial, coronal and sagittal reformatted images were generated. ---PQRS compliance statement - One or more of the following individualized dose reduction techniques were utilized for this study: 1. Automated exposure control 2. Adjustment of the mA and/or kV according to patient size 3. Use of iterative reconstruction technique--- FINDINGS: Chest: Changes of left mastectomy are seen. No axillary lymphadenopathy. Thyroid is unremarkable. No mediast inal or hilar lymphadenopathy. Heart is not enlarged. No pericardial effusion. No pleural effusion or pneumothorax. Multiple bilateral lung nodules are grossly stable measuring up to 8 mm most prominent in the middle lobe and right lower lobe. These are grossly stable in size. Abdomen and Pelvis: Multiple low-density hepatic lesions are seen, grossly stable in size, the largest measuring 3.3 cm i n the left hepatic lobe. Gallbladder is normal. No biliary duct dilatation. Pancreas is unremarkable. Spleen is normal in appearance. 1.5 cm right adrenal nodule, stable. Smaller left adrenal nodule is also stable. Symmetric nephrograms. Right upper pole renal cyst is seen. No hydronephrosis. No hydroureter. Bladde r is unremarkable. Rectosigmoid anastomosis. Moderate colonic stool content. No bowel obstruction. Ap pendix is normal. No abdominal or pelvic lymphadenopathy. No abdominal or pelvic ascites. Bones: Symphysis pubis degenerative changes are seen. Degenerative changes of the spine are seen. No aggressive osseous lesion is seen. IMPRESSION: 1. Changes of left mastectomy. 2. Multiple bilateral lung nodules and hepatic low-density lesions are grossly stable in size, likel y metastatic disease. 3. 1.5 cm right adrenal nodule, stable in size. 4. No thoracic, abdominal or pelvic lymphadenopathy by size criteria. Electronically signed by: Joey Amado MD (04/29/2021 11:52 AM) [id number]
--- NOTE | 2021-04-29 16:56 | RAD ---
EXAM: BONE SCINTIGRAPHY. HISTORY: Left breast cancer. TECHNIQUE: Following the intravenous injection Tc-99m methylene diphosphonate (MDP), delayed images o f the whole body were performed in anterior and posterior projections. COMPARISON: CT 04/29/2021. FINDINGS: There are no foci of intense uptake suggestive of osseous metastatic disease. Uptake within the right midfoot and first metatarsophalangeal joint are degenerative or posttraumatic . Additional degenerative uptake is noted in both patellas and first carpometacarpal joints. IMPRESSION: 1. No scintigraphic evidence of osseous metastatic disease. Electronically signed by: Dominik Jamison MD (04/29/2021 4:54 PM) [id number]
== END ==
LOC: NM 09:35
PROVIDERS: ATTEND Internal Medicine Hematology & Oncology
DX: C50.212 Malignant neoplasm of upper-inner quadrant of left female breast (principal); R91.8 Other nonspecific abnormal finding of lung field; N28.1 Cyst of kidney, acquired; E27.8 Other specified disorders of adrenal gland; Z17.0 Estrogen receptor positive status [ER+]
CPT/HCPCS: 71260; 74177; 78306; A9503; Q9966; Q9967

== ENCOUNTER → 2021-08-05 | Outpatient (CLI) | payer MEDICARE ==
[~2021-08-05] MED LIST changes: +CONTRAST GIVEN. MC PRN
--- NOTE | 2021-08-05 13:06 | RAD ---
Study: CT chest, abdomen and pelvis with contrast INDICATION: Follow-up breast cancer. COMPARISON: Most recent CT comparison from 04/29/2021 TECHNIQUE: Helical CT imaging performed of the chest, abdomen and pelvis after the intravenous admini stration of 75 cc Omnipaque 300. 50 cc Omnipaque 240 administered by mouth as well. Coronal and sagit nallely reformats were obtained. One or more of the following individualized dose reduction techniques were utilized for this examinat ion: 1. Automated exposure control 2. Adjustment of the mA and/or kV according to patient size 3. Use of iterative reconstruction technique. FINDINGS: CT Chest: Redemonstration of multiple solid pulmonary nodules on both the right and left. The nodules measure e ssentially unchanged in size given slight differences in patient positioning. A groundglass nodule wi thin the left upper lobe on image 16 series 3 is unchanged. No definitive new nodule. Branching opaci ties extending to the pleura at the posterior right lower lobe were present previously. No pleural ef fusion. Unchanged major vasculature. No significant change in size of mediastinal or hilar lymph nodes. Minim al pericardial fluid. No pathologically enlarged axillary lymph nodes. Status post left mastectomy. No acute or aggressive osseous abnormality. Scattered degenerative changes. CT Abdomen/Pelvis: Redemonstration of multiple hypoattenuating lesions within the liver. Many of these have mildly decre ased in size. A right hepatic lobe lesion on image 18 series 5 now measures 2.2 cm AP compared to 2.6 cm a wedge-shaped lesion anteriorly within the right hepatic lobe is measured at 2.9 cm transverse c ompared to 3.3 cm. Unchanged gallbladder, biliary tree, pancreas and spleen. Right larger than left adrenal gland nodule s are not measurably different in size. Redemonstrated exophytic renal cyst off the right upper pole. Subcentimeter low-attenuation focus anteriorly within the left kidney is unchanged. No hydronephrosi s. Contrast excretion into the bladder. Absent uterus. No adnexal mass. Rectosigmoid anastomosis. Rectal distention with well-formed stool measuring 6.3 x 4.9 cm. Less prono unced well-formed stool within the proximal colon. Normal appendix. Nonobstructed small bowel. Limite d assessment of the stomach on account of underdistention. Unchanged major vasculature. No lymphadenopathy by size criteria. Midline surgical scarring. No new o r enlarging body wall hernia. Reticulation of the subcutaneous fat superiorly was present previously. Scattered degenerative and chronic osseous findings without significant change. No acute or aggressiv e abnormality. IMPRESSION: CT Chest: 1. Multiple pulmonary nodules on both the right and left are without measurable change. No newly see n pulmonary nodule or lymphadenopathy. 2. Status post left mastectomy. CT Abdomen/Pelvis: 1. Multiple hepatic metastases persist but have slightly decreased in size. No new liver lesion. 2. Unchanged small right larger than left adrenal gland nodules. 3. No pathologically enlarged lymph nodes below the diaphragm. 4. Mild constipation with rectal distention with well-formed stool. Electronically signed by: KASSIE LIN MD (08/05/2021 1:04 PM) [facility]
--- NOTE | 2021-08-06 08:22 | RAD ---
EXAM: BONE SCINTIGRAPHY. HISTORY: Breast cancer. Rectal cancer. TECHNIQUE: Following the intravenous injection of 25.0 mCi of Tc-99m labeled methylene diphosphonate (MDP), delayed images of the whole body were performed in anterior and posterior projections. COMPARISON: 04/29/2021. FINDINGS: There are no foci of intense uptake suggestive of osseous metastatic disease. Mild uptake i n the bilateral wrists, knees and ankles is likely degenerative. IMPRESSION: 1. No scintigraphic evidence of osseous metastatic disease. Electronically signed by: Mario Mendoza MD (08/06/2021 8:20 AM) [id number]
== END ==
LOC: NM 08:03
PROVIDERS: ATTEND Internal Medicine Hematology & Oncology
DX: C50.212 Malignant neoplasm of upper-inner quadrant of left female breast (principal); C20 Malignant neoplasm of rectum; C78.7 Secondary malignant neoplasm of liver and intrahepatic bile duct; R91.8 Other nonspecific abnormal finding of lung field; K59.00 Constipation, unspecified; K76.89 Other specified diseases of liver; E27.8 Other specified disorders of adrenal gland; N28.1 Cyst of kidney, acquired; Z17.0 Estrogen receptor positive status [ER+]; Z90.12 Acquired absence of left breast and nipple
CPT/HCPCS: 71260; 74177; 78306; A9503; Q9966; Q9967